=== PATIENT | female | born 1940 | race Caucasian/White ===

== ENCOUNTER 2019-07-22 15:57 | Observation (INO) | payer OTHER ==
--- OUTSIDE RECORDS SUMMARY | 2019-07-22 15:58 | XMS REPORT ---
:1940 [facility] Address [address] [place] [address] Dr. Erickson. [address] [place] [id number] Care Team Providers Name Role Phone Unavailable Unavailable Unavailable Problems This patient has no known problems. Allergies, Adverse Reactions, Alerts This patient has no known allergies or adverse reactions. Medications This patient has no known medications.
--- NOTE | 2019-07-22 17:21 | RAD REPORT ---
EXAM DESCRIPTION: CT - CTHCSPWOC - 07/22/2019 4:46 pm CLINICAL HISTORY: Transient alteration of awareness. Patient found down on ground, hypoglycemia COMPARISON: None. TECHNIQUE: Axial 5 mm thick images of the head were obtained. Axial 2 mm thick images of the cervic al spine were obtained with sagittal and coronal reconstruction images generated and reviewed. All CT scans are performed using dose optimization technique as appropriate and may include automated exposure control or mA/KV adjustment according to patient size. FINDINGS: No intracranial hemorrhage, mass, edema or acute intracranial finding. No suspicion for ac chickaloon infarction. No extra-axial fluid collections. Mastoid air cells are clear. Air-fluid level is pre sent in the left maxillary sinus. No gross sinus wall fracture seen. No globe or orbit abnormality se en. Cervical body height and alignment are normal. No significant disc space narrowing. Posterior decompr ession changes are present C4-C6. No fracture or acute bony abnormality. Prominent endplate degenerat leticia spurring changes are present. Disc bulge and endplate spurring changes are present C3-4 causing borderline spinal stenosis. Signifi cant bony foraminal encroachment at C4-5. Central canal detail is inherently limited. No paraspinal mass or hematoma. IMPRESSION: No hemorrhage, edema or acute intracranial finding. Prominent degenerative and postsurgical changes in the cervical spine with no acute finding identifia ble. Central canal detail is inherently limited.
[2019-07-22 17:58] LABS: Protime INR 1.02
[2019-07-22 17:59] LABS: Absolute Lymphocytes (CBC) 1.4 K/uL (0.7-4.9); Basophils % 0.4 % (0-1.3); Hematocrit 42.2 % (36.0-45.0); Lymphocytes % 17.7 % (15.3-44.8); MPV 9.1 fL (7.6-11.3); RBC Red Blood Cell Count 5.04 M/uL (3.86-4.86)
[2019-07-22 18:09] LABS: ALT/SGPT 29 U/L (12-78); AST/SGOT 26 U/L (15-37); Albumin 2.9 g/dL (3.4-5.0); Alkaline Phosphatase 90 U/L (45-117); BUN Blood Urea Nitrogen 15 mg/dL (7-18); Bicarbonate 26 mmol/L (21-32); Bilirubin Direct 0.2 mg/dL (0-0.2); Bilirubin Total 0.5 mg/dL (0.2-1.0); Creatine Phosphokinase 106 U/L (26-192); Glucose Level 141 mg/dL (74-106); Lipase 163 U/L (73-393); Protein, Total 8.8 g/dL (6.4-8.2); Sodium Level 135 mmol/L (136-145); Troponin (Emerg Dept Use Only) < 0.02 ng/mL (0.0-0.045)
--- NOTE | 2019-07-22 19:04 | RAD REPORT ---
EXAM DESCRIPTION: RAD - Chest Single View - 07/22/2019 5:00 pm CLINICAL HISTORY: Altered mental status, found down, hypoglycemia COMPARISON: May 2017 TECHNIQUE: AP portable chest image was obtained 1657 hours . FINDINGS: Low lung volumes are noted. This accentuates interstitial pattern and could mask early int erstitial edema or infiltrate. Heart and vasculature are normal. No measurable pleural effusion and n o pneumothorax. No acute bony abnormality seen. No acute aortic findings suspected. IMPRESSION: No focal lung parenchymal process. Low lung volumes accentuate interstitial pattern potentially masking interstitial edema and infiltrat e.
--- NOTE | 2019-07-22 19:08 | ER ---
Nurse's Notes [facility] Name: Melanie Luna Age: 78 yrs Sex: Female : 1940 Arrival Date: 07/22/2019 Time: 16:01 Bed 4 Private MD: Diagnosis: Weakness;Hypoglycemia, unspecified Presentation: 07/22 16:02 Presenting complaint: EMS states: FOUND DOWN, HYPOGLYCEMIC BGL 53 ON SCENE. Transition bp of care: patient was not received from another setting of care. Onset of symptoms is unknown. Risk Assessment: Do you want to hurt yourself or someone else? Patient reports no desire to harm self or others. Initial Sepsis Screen: Does the patient meet any 2 criteria? Altered Mental Status. No. Patient's initial sepsis screen is negative. Does the patient have a suspected source of infection? No. Patient's initial sepsis screen is negative. Care prior to arrival: Medication(s) given: D50, 1/2 amp, IV initiated. 18 GA, in the left hand, Glucose check: 53. 16:02 Method Of Arrival: EMS: [employer] [facility] bp 16:02 Acuity: MAGDY 2 bp Triage Assessment: 16:04 General: Appears in no apparent distress. comfortable, obese, Behavior is cooperative, bp appropriate for age, anxious. Pain: Complains of pain in GENERALIZED. EENT: No deficits noted. Neuro: Level of Consciousness is awake, obeys commands, confused. Cardiovascular: No deficits noted. Respiratory: No deficits noted. GI: No signs and/or symptoms were reported involving the gastrointestinal system. : No signs and/or symptoms were reported regarding the genitourinary system. Derm: No deficits noted. Musculoskeletal: No deficits noted. Historical: - Allergies: 16:04 No Known Allergies; bp - Home Meds: 16:04 Humulin 70/30 Sub-Q [Active]; Propranolol Oral [Active]; atorvastatin oral oral bp [Active]; levothyroxine oral [Active]; - PMHx: 16:04 Diabetes - IDDM; Hypertension; Hypothyroidism; bp - Immunization history:: Adult Immunizations up to date. - Social history:: Smoking status: Patient/guardian denies using tobacco. - Ebola Screening: : No symptoms or risks identified at this time. Screenin:08 Abuse screen: Denies threats or abuse. Denies injuries from another. Nutritional bp screening: No deficits noted. Tuberculosis screening: No symptoms or risk factors identified. Fall Risk None identified. Assessment: 16:07 Reassessment: SEE TRIAGE NOTE. bp 17:37 Reassessment: PT RETURNED FROM CT, UOP PENDING. bp 19:00 General: Appears uncomfortable, ill, Behavior is calm, cooperative. Neuro: Level of bb Consciousness is awake, alert, obeys commands, Oriented to person, place, time, situation. Cardiovascular: Heart tones S1 S2 present Capillary refill < 3 seconds. Cardiovascular: Rhythm is sinus bradycardia. Respiratory: Respiratory effort is even, unlabored, Respiratory pattern is regular. GI: No deficits noted. No signs and/or symptoms were reported involving the gastrointestinal system. Derm: Skin is dry, Skin is pale, Skin temperature is cool. Musculoskeletal: Circulation, motion, and sensation intact. 20:23 Reassessment: Patient is alert, oriented x 3, equal unlabored respirations, skin bb warm/dry/pink. Reassessment: report called to Lisa CARROLL for room 425. Respiratory: Respiratory effort is even, unlabored, Respiratory pattern is regular. GI: No signs and/or symptoms were reported involving the gastrointestinal system. Derm: Skin is dry, Skin is pink, Skin temperature is cool. Musculoskeletal: Circulation, motion, and sensation intact. Vital Signs: 16:04 BP 182 / 82; Pulse 47; Resp 15; Temp 97.5; Pulse Ox 100% ; Weight 81.65 kg; bp 17:37 BP 143 / 61; Pulse 46; Resp 19; Pulse Ox 99% ; bp 18:12 BP 152 / 90; Pulse 50; Resp 15; Pulse Ox 99% ; bp 19:00 BP 163 / 93; Pulse 59; Resp 16 S; Pulse Ox 98% on R/A; bb 19:36 Temp 96.0(TE); mt ED Course: 16:01 Patient arrived in ED. bp 16:03 Triage completed. bp 16:05 Arnulfo Wu MD is Attending Physician. kdr 16:07 Arm band placed on. bp 16:07 No provider procedures requiring assistance completed. Inserted saline lock: in left bp hand, using aseptic technique. 16:08 Patient has correct armband on for positive identification. Bed in low position. Call bp light in reach. Side rails up X2. 16:09 Tonny Madrigal, RN is Primary Nurse. bp 16:33 EKG done, by nuclear reactor technician. reviewed by Arnulfo Wu MD. sm3 16:47 CT Head C Spine In Process Unspecified. EDMS 16:58 Chest Single View XRAY In Process Unspecified. EDMS 17:15 Inserted saline lock: 22 gauge in left antecubital area, using aseptic technique. Blood bp collected. 19:00 Awaiting bed assignment. bb 19:00 Diet: Patient given a regular meal tray. bb 19:00 IV is intact. bb 19:07 Ortiz Allison MD is Hospitalizing Provider. kdr 19:46 Patient admitted, IV remains in place. bb Administered Medications: 16:33 Not Given (Physician Discretion): NS 0.9% (30 ml/kg) 30 ml/kg IV at bolus once; Sepsis bp Protocol Point of Care Testing: Blood Glucose: 18:12 Blood Glucose: 129 mg/dL; bp Ranges: Outcome: 19:07 Decision to Hospitalize by Provider. kdr 19:46 Instructed on the need for admit. bb 20:26 Admitted to Tele accompanied by tech, family with patient, via wheelchair, room 425, bb with chart, Report called to Lisa CARROLL 20:26 Condition: stable 20:58 Patient left the ED. bb Signatures: Dispatcher [employer] EDArnulfo Marr MD MD [facility] Mayra Christian, RN RN Haven Velez ak Tonny Madrigal, RN RN Kristina Aviles 3
--- NOTE | 2019-07-22 19:08 | EDPHYS ---
Physician Documentation [facility] Name: Melanie Luna Age: 78 yrs Sex: Female : 1940 Arrival Date: 07/22/2019 Time: 16:01 Bed 4 Private MD: ED Physician Arnulfo Wu HPI: 07/22 16:25 This 78 yrs old Female presents to ER via EMS with complaints of Low Blood kdr Sugar. 16:25 The patient or guardian reports hypoglycemia, that was potentially precipitated by no kdr particular event, with the patient's symptoms witnessed by no one. Onset: The symptoms/episode began/occurred this morning. Associated signs and symptoms: Pertinent positives:. Current symptoms: In the emergency department the patient's symptoms have improved, markedly, is more alert. Historical: - Allergies: 16:04 No Known Allergies; bp - Home Meds: 16:04 Humulin 70/30 Sub-Q [Active]; Propranolol Oral [Active]; atorvastatin oral oral bp [Active]; levothyroxine oral [Active]; - PMHx: 16:04 Diabetes - IDDM; Hypertension; Hypothyroidism; bp - Immunization history:: Adult Immunizations up to date. - Social history:: Smoking status: Patient/guardian denies using tobacco. - Ebola Screening: : No symptoms or risks identified at this time. ROS: 16:53 Constitutional: Negative for fever, chills, and weight loss, Eyes: Negative for injury, kdr pain, redness, and discharge, ENT: Negative for injury, pain, and discharge, Neck: Negative for injury, pain, and swelling, Cardiovascular: Negative for chest pain, palpitations, and edema, Respiratory: Negative for shortness of breath, cough, wheezing, and pleuritic chest pain, Abdomen/GI: Negative for abdominal pain, nausea, vomiting, diarrhea, and constipation, Back: Negative for injury and pain, : Negative for injury, bleeding, discharge, and swelling, MS/Extremity: Negative for injury and deformity, Skin: Negative for injury, rash, and discoloration, Psych: Negative for depression, anxiety, suicide ideation, homicidal ideation, and hallucinations, Allergy/Immunology: Negative for hives, rash, and allergies, Endocrine: Negative for neck swelling, polydipsia, polyuria, polyphagia, and marked weight changes, Hematologic/Lymphatic: Negative for swollen nodes, abnormal bleeding, and unusual bruising. 16:53 Neuro: Positive for altered mental status, loss of consciousness, weakness, Negative for gait disturbance, headache, hearing loss. Exam: 16:53 Constitutional: This is a well developed, well nourished patient who is awake, alert, kdr and in no acute distress. Head/Face: Normocephalic, atraumatic. Eyes: Pupils equal round and reactive to light, extra-ocular motions intact. Lids and lashes normal. Conjunctiva and sclera are non-icteric and not injected. Cornea within normal limits. Periorbital areas with no swelling, redness, or edema. Neck: Trachea midline, no thyromegaly or masses palpated, and no cervical lymphadenopathy. Supple, full range of motion without nuchal rigidity, or vertebral point tenderness. No Meningismus. Chest/axilla: Normal chest wall appearance and motion. Nontender with no deformity. No lesions are appreciated. Cardiovascular: Regular rate and rhythm with a normal S1 and S2. No gallops, murmurs, or rubs. Normal PMI, no JVD. No pulse deficits. Respiratory: Lungs have equal breath sounds bilaterally, clear to auscultation and percussion. No rales, rhonchi or wheezes noted. No increased work of breathing, no retractions or nasal flaring. Abdomen/GI: Soft, non-tender, with normal bowel sounds. No distension or tympany. No guarding or rebound. No evidence of tenderness throughout. Back: No spinal tenderness. No costovertebral tenderness. Full range of motion. Skin: Warm, dry with normal turgor. Normal color with no rashes, no lesions, and no evidence of cellulitis. MS/ Extremity: Pulses equal, no cyanosis. Neurovascular intact. Full, normal range of motion. Neuro: Awake and alert, GCS 15, oriented to person, place, time, and situation. Cranial nerves II-XII grossly intact. Motor strength 5/5 in all extremities. Sensory grossly intact. Cerebellar exam normal. Normal gait. Psych: Awake, alert, with orientation to person, place and time. Behavior, mood, and affect are within normal limits. Vital Signs: 16:04 BP 182 / 82; Pulse 47; Resp 15; Temp 97.5; Pulse Ox 100% ; Weight 81.65 kg; bp 17:37 BP 143 / 61; Pulse 46; Resp 19; Pulse Ox 99% ; bp 18:12 BP 152 / 90; Pulse 50; Resp 15; Pulse Ox 99% ; bp 19:00 BP 163 / 93; Pulse 59; Resp 16 S; Pulse Ox 98% on R/A; bb 19:36 Temp 96.0(TE); mt MDM: 16:53 Data reviewed: vital signs, nurses notes, lab test result(s), radiologic studies. kdr Counseling: I had a detailed discussion with the patient and/or guardian regarding: the historical points, exam findings, and any diagnostic results supporting the discharge/admit diagnosis, lab results, radiology results. 19:07 Patient medically screened. kdr 19:11 Physician consultation: Esa Green MD was called at 19:11, was contacted at 19:11, [facility] regarding admission, to the telemetry unit. Admission orders: after a detailed discussion of the patient's condition and case, the admit orders are written by me. 07/22 16:08 Order name: Basic Metabolic Panel; Complete Time: 18:11 kdr 07/22 16:08 Order name: Blood Culture Adult (2) kdr 07/22 16:08 Order name: CBC with Diff; Complete Time: 18:11 kdr 07/22 16:08 Order name: Ckmb; Complete Time: 18:11 kdr 07/22 16:08 Order name: CPK; Complete Time: 18:11 kdr 07/22 16:08 Order name: Lactate; Complete Time: 18:11 kdr 07/22 16:08 Order name: LFT's; Complete Time: 18:11 kdr 07/22 16:08 Order name: Lipase; Complete Time: 18:11 kdr 07/22 16:08 Order name: Procalcitonin; Complete Time: 19:04 kdr 07/22 16:08 Order name: Protime (+inr); Complete Time: 18:11 kdr 07/22 16:08 Order name: Ptt, Activated; Complete Time: 18:11 kdr 07/22 16:08 Order name: Troponin (emerg Dept Use Only); Complete Time: 18:11 kdr 07/22 16:08 Order name: Urine Microscopic Only kdr 07/22 16:12 Order name: Glucose, Ancillary Testing; Complete Time: 16:17 EDMS 07/22 16:08 Order name: Chest Single View XRAY kdr 07/22 16:08 Order name: Accucheck; Complete Time: 16:[address] [facility] 07/22 16:08 Order name: Cardiac monitoring; Complete Time: 16:[address] [facility] 07/22 16:17 Order name: CT Head C Spine; Complete Time: 17:[address] [facility] 07/22 17:35 Order name: EKG Electrocardiogram; Complete Time: 17:36 [facility] 07/22 18:06 Order name: Glucose, Ancillary Testing; Complete Time: 18:11 [facility] 07/22 19:46 Order name: Glucose, Ancillary Testing [facility] 07/22 19:48 Order name: Urine Dipstick--Ancillary (enter results) ar5 07/22 20:01 Order name: Consistent Carb (ADA) [address] [facility] 07/22 20:01 Order name: Heart Healthy [facility] 07/22 20:01 Order name: Basic Metabolic Panel [facility] 07/22 20:01 Order name: Basic Metabolic Panel [facility] 07/22 20:01 Order name: CBC with Automated Diff [facility] 07/22 20:01 Order name: CBC with Automated Diff [facility] 07/22 20:27 Order name: Urine Culture [facility] 07/22 16:08 Order name: EKG - Nurse/Tech; Complete Time: 16:[address] [facility] 07/22 16:08 Order name: IV Saline Lock - Large Bore; Complete Time: 16:[address] [facility] 07/22 16:08 Order name: Labs collected and sent; Complete Time: 17:[address] [facility] 07/22 16:08 Order name: O2 Per Protocol; Complete Time: 16:[address] [facility] 07/22 16:08 Order name: O2 Sat Monitoring; Complete Time: 16:[address] [facility] 07/22 16:08 Order name: Urine Dipstick-Ancillary (obtain specimen); Complete Time: 19:46 kdr Administered Medications: 16:33 Not Given (Physician Discretion): NS 0.9% (30 ml/kg) 30 ml/kg IV at bolus once; Sepsis bp Protocol Point of Care Testing: Blood Glucose: 18:12 Blood Glucose: 129 mg/dL; bp Ranges: Critical Glucose Levels:Adult <50 mg/dl or >400 mg/dl <40 mg/dl or >180 mg/dl Disposition: 07/22/19 19:07 Hospitalization ordered by Ortiz Allison for Observation. Preliminary diagnosis are Weakness, Hypoglycemia, unspecified. - Bed requested for Telemetry/MedSurg (observation). - Status is Observation. bb - Condition is Fair. - Problem is new. - Symptoms have improved. UTI on Admission? No Signatures: Dispatcher [employer] EDMS Bela Gutiérrez RN RN Arnulfo Wu MD MD kdr Ballard, Brenda, RN RN bb Tonny Madrigal RN RN bp Corrections: (The following items were deleted from the chart) 20:12 19:07 Hospitalization Ordered by Ortiz Allison MD for Observation. Preliminary diagnosis mw is Weakness; Hypoglycemia, unspecified. Bed requested for Telemetry/MedSurg (observation). Status is Observation. Condition is Fair. Problem is new. Symptoms have improved. UTI on Admission? No. kdr 20:58 20:12 07/22/2019 19:07 Hospitalization Ordered by Ortiz Allison MD for Observation. bb Preliminary diagnosis is Weakness; Hypoglycemia, unspecified. Bed requested for Telemetry/MedSurg (observation). Status is Observation. Condition is Fair. Problem is new. Symptoms have improved. UTI on Admission? No. mw
[2019-07-22 19:55] LABS: Urine Blood 1+ (NEG); Urine Glucose 2+ (NEG); Urine Protein 1+ (NEG); Urine pH 5.5 (5.0-7.0)
[2019-07-22] MEDS ORDERED: GLUCAGON 1 MG/VIAL IM PRN (19:59)
[2019-07-22] MEDS ORDERED: ONDANSETRON 4 MG/2 ML VIAL IV PRN (19:59)
[2019-07-22] MEDS ORDERED: ACETAMINOPHEN 500 MG TAB PO PRN (19:59)
[2019-07-22] MEDS ORDERED: D50W 25 GM/50 ML SYRINGE/VIAL IV PRN (19:59)
[2019-07-22 20:25] LABS: Urine Bacteria LOADED /HPF (<20)
[2019-07-22 20:26] LABS: Urine Culture Reflex Order REFLEXED
[2019-07-22 21:01] VITALS: BMI 30.4
[2019-07-22 21:48] VITALS: O2SAT 94
[2019-07-22] MEDS: INSULIN -REGULAR HUMAN 50 UNIT/0.5 ML ML SQ SCH (21:52)
[2019-07-23 05:35] LABS: Absolute Lymphocytes (CBC) 1.8 K/uL (0.7-4.9); Basophils % 0.4 % (0-1.3); Hematocrit 39.3 % (36.0-45.0); Lymphocytes % 26.7 % (15.3-44.8); MPV 8.8 fL (7.6-11.3)
[2019-07-23 05:47] LABS: Potassium 4.4 mmol/L (3.5-5.1)
[2019-07-23] MEDS: INSULIN -REGULAR HUMAN 50 UNIT/0.5 ML ML SQ SCH ×2 (07:30→11:25)
--- NOTE | 2019-07-23 10:10 | P.SSS ---
Patient History Date of Service: 07/23/19 Reason for admission: LOW GLUCOSE History of Present Illness: ZION IS A DIABETIC WHO DOES NOT FOLLOW RECOMMENDATIONS. SHE HAS NOT CHAGNED HER DIET. SHE DAILY EATS BANANA AND TAKES INSULIN. SHE HAD HYPOGLYCEMIA SHE DID NOT EAT WELL AFTER TAKING INSULIN. HER DIET FLUCTUTATES AND SO EXTENAL INSULIN DOES NOT GET CARB BACK UP TO STOP HYPOGLYCEMIA. UNDERSTANDS BUT NOT ABLE TO CONTROL HER HABITS. SHE NOW IS BACK TO BASELINE. Allergies No Known Allergies Allergy (Unverified 07/22/19 19:59) Home Medications: Atorvastatin Calcium 20 mg PO DAILY 07/23/19 Hum Insulin NPH/Reg Insulin Hm [Humulin 70-30 Vial] 35 units SQ DAILY AT SUPPER 07/23/19 Hum Insulin NPH/Reg Insulin Hm [Humulin 70-30 Vial] 40 units SQ DAILY WITH BREAKFAST 07/23/19 Levothyroxine [Synthroid*] 75 mcg PO DAILY 07/23/19 Propranolol HCl 60 mg PO DAILY 07/23/19 - Past Medical/Surgical History Has patient received pneumonia vaccine in the past: Yes Diabetic: Yes -: HTN -: DM -: hypothyroidism -: hysterectomy -: neck sx - Social History Smoking Status: Former smoker Alcohol use: No CD- Drugs: No Caffeine use: Yes Place of Residence: Home Review of Systems 10-point ROS is otherwise unremarkable Physical Examination - Vital Signs Temperature: 97.7 F Blood Pressure: 134/61 Pulse: 70 Respirations: 18 Pulse Ox (%): 93 - Physical Exam General: Alert, In no apparent distress, Obese, Other (WHEELCHAIR AND WALKER BOUND. ) HEENT: Atraumatic, PERRLA, Mucous membr. moist/pink, EOMI, Sclerae nonicteric Neck: Supple, 2+ carotid pulse no bruit, No LAD, Without JVD or thyroid abnormality Respiratory: Clear to auscultation bilaterally, Normal air movement Cardiovascular: Regular rate/rhythm, Normal S1 S2 Gastrointestinal: Normal bowel sounds, No tenderness Musculoskeletal: Other (SEVERE CHARCOT JOINTS.) Integumentary: No rashes Neurological: Normal gait, Normal speech, Normal strength at 5/5 x4 extr, Normal tone, Normal affect Lymphatics: No axilla or inguinal lymphadenopathy - Studies Laboratory Data (last 24 hrs) 07/22/19 17:30: PT 12.0, INR 1.02, APTT 26.0 07/22/19 17:30: WBC 8.1, Hgb 14.2, Hct 42.2, Plt Count 192 07/22/19 17:30: Sodium 135 L, Potassium 4.0, BUN 15, Creatinine 0.89, Glucose 141 H, Total Bilirubin 0.5, AST 26, ALT 29, Alkaline Phosphatase 90, Lipase 163 - Diagnosis (Problem(s)) (1) Diabetes Current Visit: Yes Status: Acute (2) Hypoglycemia due to type 2 diabetes mellitus Current Visit: Yes Status: Acute Plan: ABOVE IN HPI SHE KNOWS WHAT TO DO TO AVOID LOW GLUCOSE. I WENT OVER IN DETAIL AGAIN. SHE IS IN DENIAL FOR LONG TIME. DOES NOT FOLLOW DIET BALANACE. - Disposition Disposition: ROUTINE DISCHARGE Condition: FAIR Patient Discharge Instructions: DO NOT TAKE INSULIN IF YOU ARE NOT GOING TO EAT RIGHT AFTER. TAKE INSULIN IN AM AND PM RIGHT BEFORE A GOOD MEAL. Diet: ADA
[2019-07-23 12:24] VITALS: BP 127/63; TEMP 98.2
--- NOTE | 2019-07-23 14:22 | EKG ---
Test Date: 2019-07-22 Test Time: 16:24:18 Uptwist Spinner: LILIYA MEASUREMENT RESULTS: Intervals: Rate: 48 PA: 112 QRSD: 86 QT: 484 QTc: 432 [place]: P: PA: 112 QRS: -35 T: 58 INTERPRETIVE STATEMENTS: Sinus bradycardia Left axis deviation Abnormal ECG Compared to ECG 05/27/1993 12:05:00 Left-axis deviation now present Sinus rhythm no longer present Short PA interval no longer present T-wave abnormality no longer present Electronically Signed On 07-23-19 14:19:23 TAKER OFF BRAKER MACHINE by Mychal Pierce
== END 2019-07-23 13:02 | disposition home or self-care (01) ==
LOC: ER 15:57 → 4TH 20:29
PROVIDERS: ADMIT Internal Medicine; ATTEND Internal Medicine
DX: E11.649 Type 2 diabetes mellitus with hypoglycemia without coma (principal); I10 Essential (primary) hypertension; E03.9 Hypothyroidism, unspecified; Z87.891 Personal history of nicotine dependence
CPT/HCPCS: 93005; 87040 ×2; 87088; 85025 ×2; 87086; 80048 ×2; 36415; 82550; 87205; 85610; 82947 ×7; 80076; 83605; 85730; 87077 ×2; 87186 ×2; 84484; 82553; 83690; 84145; 70450; 72125; 71045; 99285; G0378 ×3; 81003; 81015

== ENCOUNTER 2022-06-23 08:03 | Inpatient (IN) | payer OTHER ==
--- OUTSIDE RECORDS SUMMARY | 2022-06-23 08:06 | XMS REPORT | Continuity of Care Document ---
:1940 Author Organization [facility] t Address [address] [place] [address] Dr. White [address] [place] [address] Care Team Providers Name Role Phone ROCK REZA Attending Clinician Unavailable PIETER ASHER Attending Clinician Unavailable Payers Payer Name Policy Type Policy Number Effective Date Expiration Date S mumtaz MEDICARE PART A [id number] 2003 AND B 00:00:00 Problems This patient has no known problems. Allergies, Adverse Reactions, Alerts This patient has no known allergies or adverse reactions. Medications This patient has no known medications. Procedures This patient has no known procedures. Encounters Start End Encounter Admission Attending Care Care Encounter Source Date/Time Date/Time Type Type Clinicians Facility Department ID 2022-04-11 Outpatient [facility] [id number] [place] 15:12:30 [id number] [facility] 2022-01-29 Outpatient ROCK REZA [facility] [id number] [place] 09:21:09 [id number] [facility] 2022-01-01 Outpatient [facility] [id number] [place] 15:22:23 [id number] [facility] 2021-12-23 Outpatient ROCK REZA [facility] [id number] [place] 16:16:47 [id number] [facility] 2021-12-20 Outpatient [facility] [id number] [place] 11:20:19 [id number] [facility] 2021-12-19 Outpatient [facility] [id number] [place] 16:00:19 [id number] [facility] 2021-12-17 Outpatient [facility] [id number] [place] 01:04:47 [id number] [facility] 2021-12-16 Outpatient LB [facility] [id number] [place] 16:58:12 PIETER [id number] [facility] 2021-12-13 Outpatient [facility] [id number] [place] 08:14:59 [id number] [facility] 2021-12-12 Outpatient [facility] [id number] [place] 15:52:29 [id number] [facility] 2021-11-27 Outpatient [facility] [id number] [place] 09:42:35 [id number] [facility] 2021-11-20 Outpatient [facility] [id number] [place] 09:44:31 [id number] Health Results This patient has no known results.
--- NOTE | 2022-06-23 08:45 | RAD REPORT ---
EXAM DESCRIPTION: RAD - Chest Single View - 06/23/2022 8:36 am CLINICAL HISTORY: MALAISE Chest pain. COMPARISON: Chest Single View dated 07/22/2019; Chest Pa And Lat (2 Views) dated 06/16/2017 FINDINGS: Portable technique limits examination quality. Hazy appearance to the left lung may indicate mild asymmetric interstitial pulmonary edema. The heart is normal in size. No displaced fractures.Small hiatal hernia.
[2022-06-23 08:52] LABS: Urine Blood 1+ (Negative); Urine Glucose 3+ (Negative); Urine Protein 2+ (Negative); Urine Specific Gravity 1.015 (1.005-1.030); Urine pH 5.5 (5.0-7.0)
--- NOTE | 2022-06-23 08:55 | RAD REPORT ---
EXAM DESCRIPTION: CT - Head Brain Wo Cont - 06/23/2022 8:33 am CLINICAL HISTORY: weakness Headache, drowsiness, fall, head injury COMPARISON: No comparisons TECHNIQUE: All CT scans are performed using dose optimization technique as appropriate and may inclu de automated exposure control or mA/KV adjustment according to patient size. FINDINGS: No intracranial hemorrhage, hydrocephalus or extra-axial fluid collection.No areas of brai n edema or evidence of midline shift. The paranasal sinuses and mastoids are clear. The calvarium is intact. IMPRESSION: No acute intracranial abnormality.
[2022-06-23 09:01] LABS: Urine Bacteria 20-50 /HPF (<20); Urine Mucus Slight /HPF (None Seen); Urine WBC Clump Occasional /HPF (None Seen)
[2022-06-23] MEDS ORDERED: NA CHLORIDE 0.9% 50 ML IV ONE (09:08)
[2022-06-23] MEDS ORDERED: CEFTRIAXONE 1000 MG/VIAL ONE (09:08)
[2022-06-23 09:40] LABS: Absolute Lymphocytes (CBC) 1.1 K/uL (0.7-4.9); Hematocrit 40.6 % (36.0-45.0); Lymphocytes % 11.3 % (15.3-44.8); MCV 85.8 fL (80-100); MPV 9.1 fL (7.6-11.3); RBC Red Blood Cell Count 4.74 M/uL (3.86-4.86)
[2022-06-23 09:42] LABS: Protime INR 1.03
--- NOTE | 2022-06-23 09:54 | RAD REPORT ---
EXAM DESCRIPTION: RAD - Elbow Left 3 View - 06/23/2022 9:30 am CLINICAL HISTORY: PAIN COMPARISON: No comparisons FINDINGS: No fracture or dislocation seen. No radiopaque foreign body.
[2022-06-23 10:01] LABS: Albumin 2.7 g/dL (3.4-5.0); Bilirubin Total 0.5 mg/dL (0.2-1.0); Potassium 3.9 mmol/L (3.5-5.1); Protein, Total 7.9 g/dL (6.4-8.2); Troponin High Sensitivity 15.5 pg/mL (<58.9)
[2022-06-23 10:04] LABS: Thyroid Stimulating Hormone 5.9 uIU/mL (0.360-3.740)
[2022-06-23] MEDS ORDERED: HYDRALAZINE HCL 20 MG/ML VIAL ONE (10:34)
[2022-06-23] MEDS ORDERED: INSULIN -REGULAR HUMAN 50 UNIT/0.5 ML ML ONE (10:35)
--- NOTE | 2022-06-23 10:41 | ER ---
Nurse's Notes [facility] Name: Melanie Luna Age: 81 yrs Sex: Female : 1940 Arrival Date: 06/23/2022 Time: 08:07 Bed 19 Private MD: Diagnosis: UTI/ Urinary tract infection, site not specified;Hyperglycemia, unspecified;Hypertensive urgency Presentation: 06/23 08:09 Chief complaint: Patient states: Weakness and falls for a few days. L elbow abrasion ll1 noted with tenderness. EMS states: Sugar 500's last night. Fingerstick 365 en route. 22 G R Hand NS 500 ml bolus given. Coronavirus screen: Vaccine status: Patient reports receiving the 2nd dose of the covid vaccine. Client denies travel out of the [place] in the last 14 days. At this time, the client does not indicate any symptoms associated with coronavirus-19. Ebola Screen: Patient denies travel to an Ebola-affected area in the 21 days before illness onset. Initial Sepsis Screen: Does the patient meet any 2 criteria? No. Patient's initial sepsis screen is negative. Does the patient have a suspected source of infection? No. Patient's initial sepsis screen is negative. Risk Assessment: Do you want to hurt yourself or someone else? Patient reports no desire to harm self or others. Onset of symptoms is unknown. 08:09 Method Of Arrival: EMS ll1 08:09 Acuity: MAGDY 3 ll1 08:53 Care prior to arrival: IV fluids. Mechanism of Injury: Fall. Trauma event details: ll1 Injury occurred in the [facility]. Triage Assessment: 08:12 General: Appears in no apparent distress. Behavior is cooperative, appropriate for age. ll1 Pain: Complains of pain in left arm Pain currently is 2 out of 10 on a pain scale. Quality of pain is described as aching. Neuro: Reports dizziness, weakness. Derm: abrasion L elbow. Musculoskeletal: Reports pain in left arm. Trauma Activation: Not Applicable Physician: ED Physician; Name: ; Notified At: ; Arrived At: Physician: General Surgeon; Name: ; Notified At: ; Arrived At: Physician: Radiology; Name: ; Notified At: ; Arrived At: Physician: Respiratory; Name: ; Notified At: ; Arrived At: Physician: Lab; Name: ; Notified At: ; Arrived At: Historical: - Allergies: 08:08 No Known Allergies; ll1 - PMHx: 08:08 Diabetes - IDDM; Hypertension; Hypothyroidism; CVA; Parkinson's disease; ll1 - PSHx: 08:08 Unable to Obtain; ll1 - Immunization history:: Client reports receiving the 2nd dose of the Covid vaccine. - Social history:: Smoking status: Patient/guardian denies using tobacco, the patient reports quitting approximately 20 years ago. - Immunization history: Last tetanus immunization: - up to date. Screenin:13 Abuse screen: Denies threats or abuse. Nutritional screening: No deficits noted. ll1 Tuberculosis screening: No symptoms or risk factors identified. Fall Risk Fall in past 12 months (25 points). Secondary diagnosis (15 points) CVA, IV access (20 points). Mental Status- Overestimates/Forgets Limitations (15 pts.). Total Liao Fall Scale indicates High Risk Score (45 or more points). Fall prevention measures have been instituted. Side Rails Up X 2 Placed Close to Nursing Station Frequent Obs/Assessments Occuring Family Present and informed to notify staff if the need to leave the bedside As available patient and family educated on Fall Prevention Program and Strategies. Primary Survey: 08:14 NO uncontrolled hemorrhage observed. A: The client is awake and alert. The airway is ll1 patent. Breathing/Chest: Spontaneous respiratory effort, equal unlabored respirations, breath sounds clear bilaterally, regular pattern, symmetrical chest rise and fall. Circulation: No external hemorrhage present. Regular and strong central pulse, skin warm/dry/normal color. Disability Client is alert. Exposure/Environment: There is no evidence of uncontrolled external bleeding. A warming method has been applied: A warm blanket has been provided to the patient. 10:42 Reassessment Alertness and Airway: Awake and alert. The airway is patent. Breathing: ll1 Spontaneous respiratory effort, equal unlabored respirations, breath sounds clear bilaterally, regular pattern with symmetrical chest rise and fall. Assessment: 08:53 Reassessment: No changes from previously documented assessment. Patient and/or family ll1 updated on plan of care and expected duration. Pain level reassessed. 09:20 Reassessment: No changes from previously documented assessment. Patient and/or family ll1 updated on plan of care and expected duration. Pain level reassessed. 10:09 Reassessment: No changes from previously documented assessment. Patient and/or family ll1 updated on plan of care and expected duration. Pain level reassessed. 10:41 Reassessment: No changes from previously documented assessment. Patient and/or family ll1 updated on plan of care and expected duration. Pain level reassessed. to be admitted. 11:20 Reassessment: No changes from previously documented assessment. Patient and/or family ll1 updated on plan of care and expected duration. Pain level reassessed. 12:27 Reassessment: No changes from previously documented assessment. Patient and/or family ll1 updated on plan of care and expected duration. Pain level reassessed. given lunch alex. 12:45 Reassessment: No changes from previously documented assessment. Dr. Allison at bedside. ll1 13:53 Reassessment: No changes from previously documented assessment. Patient and/or family ll1 updated on plan of care and expected duration. Pain level reassessed. 14:51 Reassessment: No changes from previously documented assessment. Patient and/or family ll1 updated on plan of care and expected duration. Pain level reassessed. Vital Signs: 08:09 BP 162 / 79; Pulse 83; Resp 16; Temp 97.4; Pulse Ox 96% on R/A; Weight 100.7 kg; Height ll1 5 ft. 6 in. (167.64 cm); Pain 2/10; 09:25 BP 183 / 99; Pulse 75; Resp 16; Pulse Ox 96% on R/A; tw2 10:09 BP 195 / 98; Pulse 78; Pulse Ox 96% on R/A; ll1 10:42 BP 147 / 109; Pulse 81; Resp 16; Pulse Ox 100% on R/A; ll1 11:04 BP 150 / 68; Pulse 81; Resp 16; Pulse Ox 100% on R/A; ll1 12:27 BP 149 / 69; Pulse 90; Pulse Ox 96% ; ll1 14:35 BP 140 / 55; Pulse 91; Resp 17; Pulse Ox 100% ; ll1 08:09 Body Mass Index 35.83 (100.70 kg, 167.64 cm) ll1 [place] Coma Score: 08:13 Eye Response: spontaneous(4). Verbal Response: confused(4). Motor Response: obeys ll1 commands(6). Total: 14. Trauma Score (Adult): 08:13 Eye Response: spontaneous(1); Verbal Response: oriented(1); Motor Response: obeys ll1 commands(2); Systolic BP: > 89 mm Hg(4); Respiratory Rate: 10 to 29 per min(4); Natasha Score: 15; Trauma Score: 12 NIH Stroke Scale Scores: 08:16 NIHSS Score: 8 [facility] ED Course: 08:07 Patient arrived in ED. ll1 08:08 Arm band placed on Patient placed in an exam room, on a stretcher. 1 08:10 Jo[facility] Gonzalez FNP [facility] 7 08:10 Wilfrido Johnson MD is Attending Physician. 7 08:10 Thermoregulation: warm blanket given to patient. ll1 08:12 Triage completed. ll1 08:13 Maintain EMS IV. Dressing intact. Good blood return noted. Site clean \T\ dry. Gauge \T\ ll 1 site: 22 R hand. 08:14 Danny Beatty, CARLY is Primary Nurse. ll1 08:35 CT Head Brain wo Cont In Process Unspecified. EDMS 08:38 Chest Single View XRAY In Process Unspecified. EDMS 08:52 Dunlap cath inserted, using sterile technique, 16 Fr., by mn, balloon inflated, to ll1 gravity drainage, urine specimen collected. 08:53 Patient has correct armband on for positive identification. Bed in low position. Call ll1 light in reach. Side rails up X2. Client placed on continuous cardiac and pulse oximetry monitoring. NIBP monitoring applied. 08:53 Patient maintains SpO2 saturation greater than 95% on room air. ll1 09:17 Inserted saline lock: 22 gauge in left antecubital area, using aseptic technique. Blood tw2 collected. 09:31 Elbow Left 3 View XRAY In Process Unspecified. EDMS 10:39 Ortiz Allison MD is Hospitalizing Provider. [facility] 11:27 SARS RAPID Sent. ll1 14:50 No provider procedures requiring assistance completed. Patient admitted, IV remains in ll1 place. Administered Medications: 10:42 Drug: Insulin Regular Human 5 units {Co-Signature: tw2 (Asha Franks RN).} Route: IVP; 1 Site: right hand; 11:05 Follow up: Response: No adverse reaction 1 10:43 Drug: hydrALAZINE 10 mg Route: IVP; Site: right hand; ll1 11:05 Follow up: Response: No adverse reaction 1 11:51 Drug: Rocephin (cefTRIAXone) 1 grams Route: IV; Rate: 1 calculated rate; Site: right ll1 hand; 13:54 Follow up: Response: No adverse reaction; IV Status: Completed infusion; IV Intake: [id number] Medication: 08:14 VIS not applicable for this client. ll1 Intake: 13:54 IV: 50ml; Total: 50ml. ll1 14:50 PO: 200ml; Total: 250ml. ll1 Output: 14:50 Urine: 300ml; Total: 300ml. 1 Outcome: 10:40 Decision to Hospitalize by Provider. [facility] hospital 14:51 Patient's length of stay in the Emergency Department was greater than 2 hours. 1 14:51 Admitted to Med/surg accompanied by mikala, via stretcher, room Room 404, with oxygen, ll1 with chart. 14:51 Condition: stable 14:51 Instructed on the need for admit. 15:07 Admitted to Med/surg Report called to CARLY Cm On 1 15:20 Patient left the ED. 1 NIH Stroke Scale - NIH Stroke Score Date: 06/23/2022 Time: 08:16 Total Score = 8 1a. Level of Consciousness (LOC) - 0(Alert) 1b. Level of Consciousness (LOC) (Month \T\ Age) - 2(Neither) 1c. LOC Commands (Open \T\ Closes Eyes/Histologic Technician) - 0(Both) 2. Best Gaze (Lateral Gaze Paresis) - 0(Normal) 3. Visual Field Loss - 0(No visual loss) 4. Facial Palsy - 0(Normal) 5a. Left Arm: Motor (10-second hold) - 1(Drift) 5b. Right Arm: Motor (10-second hold) - 1(Drift) 6a. Left Leg: Motor (5-second hold - always test supine) - 1(Drift) 6b. Right Leg: Motor (5-second hold - always test supine) - 1(Drift) 7. Limb Ataxia (finger/nose \T\ heel/cabral - test with eyes open) - 2(Present in two limbs) 8. Sensory Loss (pinprick arms/legs/face) - 0(Normal) 9. Best Language: Aphasia (description/naming/reading) - 0(No aphasia) 10. Dysarthria (speech clarity - read or repeat words) - 0(Normal) 11. Extinction and Inattention (visual/tactile/auditory/spatial/personal) - 0(No abnormality) Initials: community hospital Signatures: Dispatcher [employer] Asha Flores RN RN tw2 Danny Beatty RN RN ll1 Joanie Gonzalez FNP PRODUCTION PLANNING SUPERVISOR 7 Asha Franks RN tw2
--- NOTE | 2022-06-23 10:41 | EDPHYS ---
Physician Documentation [facility] Name: Melanie Luna Age: 81 yrs Sex: Female : 1940 Arrival Date: 06/23/2022 Time: 08:07 Bed 19 Private MD: ED Physician Wilfrido Johnson HPI: 06/23 08:13 This 81 yrs old Female presents to ER via EMS with complaints of General Weakness, Fall jh7 Injury. 08:13 Onset: The symptoms/episode began/occurred at an unknown time. and became worse last jh7 night. Associated signs and symptoms: Pertinent positives: Polyuria, Pertinent negatives: abdominal pain, chest pain, dysuria, fever, headache, shortness of breath, vomiting. 08:16 EMS called on scene by the patient's for increasing weakness. states jh7 this has been going on for a while now, but worsened last night. Reports that she has had trouble making it to the bathroom and has experienced increased urination. The patient reports that she constantly feels like she is about to fall, and had 1 assist to the floor last night and one incident with the patient caught herself on her bookshelf before falling. The patient's reports that she has been noncompliant with her medication for the past 4 months. She has a history of Parkinson's, hypertension, type 2 diabetes, and a stroke 6 months ago. Her medication include atorvastatin, levothyroxine, lisinopril, Tylenol with codeine, and propanolol. They report that her blood glucose was 365 this morning and she was hypertensive on scene at 170/90.. Historical: - Allergies: 08:08 No Known Allergies; ll1 - PMHx: 08:08 Diabetes - IDDM; Hypertension; Hypothyroidism; CVA; Parkinson's disease; ll1 - PSHx: 08:08 Unable to Obtain; ll1 - Immunization history:: Client reports receiving the 2nd dose of the Covid vaccine. - Social history:: Smoking status: Patient/guardian denies using tobacco, the patient reports quitting approximately 20 years ago. - Immunization history: Last tetanus immunization: - up to date. ROS: 08:16 Constitutional: Negative for fever, chills, and weight loss, Eyes: Negative for injury, jh7 pain, redness, and discharge, ENT: Negative for injury, pain, and discharge, Neck: Negative for injury, pain, and swelling, Cardiovascular: Negative for chest pain, palpitations, and edema, Respiratory: Negative for shortness of breath, cough, wheezing, and pleuritic chest pain, Abdomen/GI: Negative for abdominal pain, nausea, vomiting, diarrhea, and constipation, Back: Negative for injury and pain, MS/Extremity: Negative for injury and deformity, Skin: Negative for injury, rash, and discoloration. 08:16 : Positive for urinary frequency, Negative for pelvic pain, flank pain, burning with urination, vaginal discharge. 08:16 Neuro: Positive for altered mental status, gait disturbance, tremor, weakness, Negative for headache, loss of consciousness, numbness, speech changes, syncope, tingling. 08:16 All other systems are negative. Exam: 08:16 Constitutional: This is a well developed, well nourished patient who is awake, alert, jh7 and in no acute distress. Head/Face: Normocephalic, atraumatic. Eyes: Pupils equal round and reactive to light, extra-ocular motions intact. Lids and lashes normal. Conjunctiva and sclera are non-icteric and not injected. Cornea within normal limits. Periorbital areas with no swelling, redness, or edema. ENT: Nares patent. No nasal discharge, no septal abnormalities noted. Oropharynx with no redness, swelling, or masses, exudates, or evidence of obstruction, uvula midline. Mucous membranes moist. 08:16 Chest/axilla: Normal chest wall appearance and motion. Nontender with no deformity. No lesions are appreciated. Cardiovascular: Regular rate and rhythm with a normal S1 and S2. No gallops, murmurs, or rubs. Normal PMI, no JVD. No pulse deficits. Abdomen/GI: Soft, non-tender, with normal bowel sounds. No distension or tympany. No guarding or rebound. No evidence of tenderness throughout. Back: No spinal tenderness. No costovertebral tenderness. Full range of motion. MS/ Extremity: Pulses equal, no cyanosis. Neurovascular intact. Full, normal range of motion. 08:16 Respiratory: the patient does not display signs of respiratory distress, Respirations: normal, Breath sounds: decreased breath sounds, that are mild, are heard in the left lower lobe and right lower lobe. 08:16 Neuro: Orientation: Not oriented to time, situation, Mentation: slow to respond, Motor: strength is 4/5 in the right leg and left leg, Sensation: is normal. 08:16 Skin: injury, abrasion(s), small abrasion noted, of the left elbow. [facility] Vital Signs: 08:09 BP 162 / 79; Pulse 83; Resp 16; Temp 97.4; Pulse Ox 96% on R/A; Weight 100.7 kg; Height ll1 5 ft. 6 in. (167.64 cm); Pain 2/10; 09:25 BP 183 / 99; Pulse 75; Resp 16; Pulse Ox 96% on R/A; tw2 10:09 BP 195 / 98; Pulse 78; Pulse Ox 96% on R/A; ll1 10:42 BP 147 / 109; Pulse 81; Resp 16; Pulse Ox 100% on R/A; ll1 11:04 BP 150 / 68; Pulse 81; Resp 16; Pulse Ox 100% on R/A; ll1 12:27 BP 149 / 69; Pulse 90; Pulse Ox 96% ; ll1 14:35 BP 140 / 55; Pulse 91; Resp 17; Pulse Ox 100% ; ll1 08:09 Body Mass Index 35.83 (100.70 kg, 167.64 cm) 1 NIH Stroke Scale Scores: 08:16 NIHSS Score: 8 [facility] Natasha Coma Score: 08:13 Eye Response: spontaneous(4). Verbal Response: confused(4). Motor Response: obeys ll1 commands(6). Total: 14. Trauma Score (Adult): 08:13 Eye Response: spontaneous(1); Verbal Response: oriented(1); Motor Response: obeys ll1 commands(2); Systolic BP: > 89 mm Hg(4); Respiratory Rate: 10 to 29 per min(4); Natasha Score: 15; Trauma Score: 12 MDM: 08:10 Patient medically screened. [facility] 10:50 Differential diagnosis: viral Infection, bacterial infection, pneumonia UTI, [facility] Dehydration. Data reviewed: vital signs, nurses notes, lab test result(s), EKG, radiologic studies, CT scan, plain films. Data interpreted: Pulse oximetry: is 100 %. Interpretation: normal. Counseling: I had a detailed discussion with the patient and/or guardian regarding: the historical points, exam findings, and any diagnostic results supporting the discharge/admit diagnosis, the need for further work-up and treatment in the hospital. ED course: admitted the patient to her PCP Dr. Bhakta. Admission orders were placed in [facility]. He requested ACHS sliding scale, 0.45 NS \T\75mL, PT consult, continue Rocephin, and BMP/CBC daily. . 06/23 08:12 Order name: Blood Culture Adult (2) [facility] 06/23 08:12 Order name: CBC with Diff; Complete Time: 09:42 [facility] 06/23 08:12 Order name: CMP; Complete Time: 10:29 [facility] 06/23 08:12 Order name: Lactate; Complete Time: 09:54 [facility] 06/23 08:12 Order name: Protime (+inr); Complete Time: 09:54 [facility] 06/23 08:12 Order name: Ptt, Activated; Complete Time: 09:54 [facility] 06/23 08:12 Order name: Urine Microscopic Only; Complete Time: 09:03 [facility] 06/23 08:12 Order name: Troponin HS; Complete Time: 10:29 [facility] 06/23 08:12 Order name: CK; Complete Time: 10:29 [facility] 06/23 08:12 Order name: PROBNP; Complete Time: 10:29 [facility] 06/23 08:13 Order name: TSH; Complete Time: 10:29 [facility] 06/23 08:52 Order name: Urine Dipstick-Ancillary; Complete Time: 08:54 [facility] 06/23 09:05 Order name: Urine Culture [facility] 06/23 10:06 Order name: T4 Free; Complete Time: 10:29 [facility] 06/23 08:12 Order name: Chest Single View XRAY; Complete Time: 08:54 [facility] 06/23 08:12 Order name: Accucheck; Complete Time: 10:36 [facility] 06/23 08:12 Order name: Cardiac monitoring; Complete Time: 08:27 [facility] 06/23 08:12 Order name: CT Head Brain wo Cont; Complete Time: 08:58 [facility] 06/23 08:21 Order name: EKG; Complete Time: 08:21 [facility] 06/23 09:06 Order name: Elbow Left 3 View XRAY; Complete Time: 10:03 [facility] 06/23 11:19 Order name: Physical Therapy Consult [facility] 06/23 11:24 Order name: SARS RAPID; Complete Time: 13:28 [facility] 06/23 12:02 Order name: Glucose, Ancillary Testing; Complete Time: 13:28 [facility] 06/23 08:12 Order name: EKG - Nurse/Tech; Complete Time: 08:27 [facility] 06/23 08:12 Order name: IV Saline Lock - Large Bore; Complete Time: 08:15 [facility] 06/23 08:12 Order name: Labs collected and sent; Complete Time: 08:15 [facility] 06/23 08:12 Order name: O2 Per Protocol; Complete Time: 08:15 [facility] 06/23 08:12 Order name: O2 Sat Monitoring; Complete Time: 08:15 [facility] 06/23 08:12 Order name: Urine Dipstick-Ancillary (obtain specimen); Complete Time: 08:52 [facility] 06/23 08:12 Order name: Vital Signs; Complete Time: 08:15 [facility] 06/23 08:25 Order name: Dunlap; Complete Time: 08:52 [facility] EC:30 Rate is 79 beats/min. Rhythm is regular. QRS [place] is Normal. MO interval is normal at [facility] 124 msec. QRS interval is normal at 84 msec. QT interval is normal at 368 msec. No Q waves. T waves are Normal. No ST changes noted. Clinical impression: NSR w/ Non-specific ST/T Changes. Administered Medications: 10:42 Drug: Insulin Regular Human 5 units {Co-Signature: tw2 (Asha Franks RN).} Route: IVP; [facility] Site: right hand; 11:05 Follow up: Response: No adverse reaction [facility] 10:43 Drug: hydrALAZINE 10 mg Route: IVP; Site: right hand; [facility] 11:05 Follow up: Response: No adverse reaction [facility] 11:51 Drug: Rocephin (cefTRIAXone) 1 grams Route: IV; Rate: 1 calculated rate; Site: right [facility] hand; 13:54 Follow up: Response: No adverse reaction; IV Status: Completed infusion; IV Intake: [id number] Disposition Summary: 06/23/22 10:40 Hospitalization Ordered Hospitalization Status: Inpatient Admission [facility] Provider: Ortiz Allison [facility] Location: Telemetry/MedSur (Inpatient) [facility] Condition: Stable [facility] Problem: new [facility] Symptoms: are unchanged [facility] Bed/Room Type: Standard [facility] Room Assignment: 404(06/23/22 14:47) Diagnosis - UTI/ Urinary tract infection, site not specified [facility] - Hyperglycemia, unspecified [facility] - Hypertensive urgency [facility] Forms: - Medication Reconciliation Form [facility] - SBAR form [facility] NIH Stroke Scale - NIH Stroke Score Date: 06/23/2022 Time: 08:16 Total Score = 8 1a. Level of Consciousness (LOC) - 0(Alert) 1b. Level of Consciousness (LOC) (Month \T\ Age) - 2(Neither) 1c. LOC Commands (Open \T\ Closes Eyes/Nurse Sexual Assault) - 0(Both) 2. Best Gaze (Lateral Gaze Paresis) - 0(Normal) 3. Visual Field Loss - 0(No visual loss) 4. Facial Palsy - 0(Normal) 5a. Left Arm: Motor (10-second hold) - 1(Drift) 5b. Right Arm: Motor (10-second hold) - 1(Drift) 6a. Left Leg: Motor (5-second hold - always test supine) - 1(Drift) 6b. Right Leg: Motor (5-second hold - always test supine) - 1(Drift) 7. Limb Ataxia (finger/nose \T\ heel/cabral - test with eyes open) - 2(Present in two limbs) 8. Sensory Loss (pinprick arms/legs/face) - 0(Normal) 9. Best Language: Aphasia (description/naming/reading) - 0(No aphasia) 10. Dysarthria (speech clarity - read or repeat words) - 0(Normal) 11. Extinction and Inattention (visual/tactile/auditory/spatial/personal) - 0(No abnormality) Initials: [facility] Addendum: 06/26/2022 06:29 Co-signature as Attending Physician, Wilfrido Johnson MD. rn Signatures: Dispatcher [employer] Stefania Pratt RN RN Wilfrido Quevedo MD MD rn Lewis, Lynsay, RN RN ll1 Joanie Gonzalez, DISPLAY MECHANIC DISPLAY MECHANIC [facility] Asha Franks RN tw2 Corrections: (The following items were deleted from the chart) 06/23 08:19 08:13 Onset: The symptoms/episode began/occurred at an unknown time. and became [facility] worse last night, jh7 09:07 08:16 Chest/axilla: Normal chest wall appearance and motion. Nontender with no [facility] deformity. No lesions are appreciated. Cardiovascular: Regular rate and rhythm with a normal S1 and S2. No gallops, murmurs, or rubs. Normal PMI, no JVD. No pulse deficits. Abdomen/GI: Soft, non-tender, with normal bowel sounds. No distension or tympany. No guarding or rebound. No evidence of tenderness throughout. Back: No spinal tenderness. No costovertebral tenderness. Full range of motion. Skin: Warm, dry with normal turgor. Normal color with no rashes, no lesions, and no evidence of cellulitis. MS/ Extremity: Pulses equal, no cyanosis. Neurovascular intact. Full, normal range of motion. [facility] 13:58 11:19 60g Consistent Carbohydrate (ADA 1800/2000) ordered. EDMS EDMS 13:58 11:19 Basic Metabolic Panel ordered. EDMS EDMS 13:58 11:19 CBC with Automated Diff ordered. EDMS EDMS 13:58 11:19 Urinalysis ordered. EDMS EDMS 14:47 10:40 [facility] dw
[2022-06-23] MEDS ORDERED: INSULIN -REGULAR HUMAN 50 UNIT/0.5 ML ML SQ SCH (11:30)
[2022-06-23 11:54] LABS: SARS-CoV-2 Antigen Rapid Res Negative (Negative)
[2022-06-23] MEDS ORDERED: NACHLORIDE 0.45% 1,000 ML IV SCH (12:00)
[2022-06-23] MEDS ORDERED: GLUCAGON 1 MG/VIAL IM PRN ×2 (15:36→17:02)
[2022-06-23] MEDS ORDERED: D10W 250 ML BAG IV PRN ×2 (16:05→17:30)
[2022-06-23] MEDS: NACHLORIDE 0.45% 1,000 ML IV SCH (16:24)
[2022-06-23] MEDS: INSULIN -REGULAR HUMAN 50 UNIT/0.5 ML ML SQ SCH ×2 (16:25→20:33)
--- NOTE | 2022-06-23 17:06 | RAD REPORT ---
EXAM DESCRIPTION: MRIFoot Right Wo Cont06/23/2022 4:39 pm CLINICAL HISTORY: Right foot pain COMPARISON: 2010 TECHNIQUE: Axial, sagittal and coronal magnetic resonance imaging of the right foot was obtained. FINDINGS: Abnormal signal involves most of the second distal phalanx compatible with osteomyelitis. Edema is present adjacent soft tissue. A soft tissue ulceration is present. Prominent edema within the dorsal subcutaneous tissues. No fracture or dislocation IMPRESSION: Osteomyelitis second distal phalanx
--- NOTE | 2022-06-23 17:35 | P.HP ---
Certification for Inpatient Patient admitted to: Inpatient With expected LOS: >2 Midnights Practitioner: I am a practitioner with admitting privileges, knowledge of patient current condition, hospital course, and medical plan of care. Services: Services provided to patient in accordance with Admission requirements found in Title 42 Section 412.3 of the Code of Federal Regulations Patient History Date of Service: 06/23/22 Reason for admission: CONFUSION, WEAKNESS, FALLS, UNCONTROLLED DM History of Present Illness: ZION HAS BEEN A NON COMPLIANT DIABETIC FOR LONG YEARS. I HAVE KNOWN HER FOR MANY YEARS AND I CAN TELL THAT SHE OR HAVE NEVER BEEN ABLE TO CONTROL DM OR FOLLOW DIET. TODAY I WALK IN THE HOSPITAL AND SHE IS EATING POTATOES WITH OTHER CARBS. THEY HAVE BEEN ADVISED ABOUT DIET AND INSULIN FOR LONG DURATION. SHE IS TRYING TO TAKE HER OWN INSULIN AND HAS NEVER BEEN ABLE TO FOLLOW ADVISES. SHE HAS NOW PARKINSON'S AND DEMENTIA. SHE COMES IN WITH AMS, WEAKNESS AND IS FOUND TO HAVE UTI ON CATH SPECIMEN AND GLUCOSE OF 550. Allergies No Known Allergies Allergy (Unverified 07/22/19 19:59) Home medications list reviewed: Yes Home Medications: Atorvastatin Calcium 80 mg PO DAILY 07/23/19 Hum Insulin NPH/Reg Insulin Hm [Humulin 70-30 Vial] 35 units SQ BID 07/23/19 Levothyroxine [Synthroid*] 75 mcg PO [id number] 07/23/19 Propranolol HCl 60 mg PO DAILY 07/23/19 Lisinopril [Zestril] 20 mg PO DAILY 06/23/22 - Past Medical/Surgical History Has patient received pneumonia vaccine in the past: Yes Diabetic: Yes -: HTN -: DM -: hypothyroidism -: HLD -: CVA- 6 months ago -: hysterectomy -: neck sx - Social History Smoking Status: Former smoker Alcohol use: No CD- Drugs: No Caffeine use: No Place of Residence: Home Review of Systems 10-point ROS is otherwise unremarkable General: Weakness Physical Examination - Vital Signs Temperature: 98.6 F Blood Pressure: 151/79 Pulse: 97 Respirations: 16 Pulse Ox (%): 94 - Physical Exam General: Oriented x2, Mild distress HEENT: Atraumatic, PERRLA, Mucous membr. moist/pink, EOMI, Sclerae nonicteric Neck: Supple, 2+ carotid pulse no bruit, No LAD, Without JVD or thyroid abnormality Respiratory: Clear to auscultation bilaterally, Normal air movement Cardiovascular: Regular rate/rhythm, Normal S1 S2 Gastrointestinal: Normal bowel sounds, No tenderness Musculoskeletal: No tenderness, Other (GREAT TOE ULCER. CHRONIC SEEN BY SHINGLE PACKER IN [facility] Integumentary: No rashes Neurological: Normal gait, Normal speech, Normal strength at 5/5 x4 extr, Normal tone, Normal affect Lymphatics: No axilla or inguinal lymphadenopathy - Studies Laboratory Data (last 24 hrs) 06/23/22 13:00: Sodium Cancelled, Potassium Cancelled, BUN Cancelled, Creatinine Cancelled, Glucose Cancelled 06/23/22 13:00: WBC Cancelled, Hgb Cancelled, Hct Cancelled, Plt Count Cancelled 06/23/22 09:17: PT 11.3, INR 1.03, APTT 28.0 06/23/22 09:17: Sodium 131 L, Potassium 3.9, BUN 19 H, Creatinine 0.93, Glucose 347 H, Total Bilirubin 0.5, AST 15, ALT 17, Alkaline Phosphatase 104 06/23/22 09:17: WBC 9.60, Hgb 13.6, Hct 40.6, Plt Count 221 Assessment and Plan - Problems (Diagnosis) (1) Diabetic foot Current Visit: Yes Status: Chronic Plan: IV ABX FOR NOW IS FOR UTI AND WILL WORK FOR THIS ALSO. FU WITH [place] FOOT DOCTOR. (2) UTI (urinary tract infection) Current Visit: Yes Status: Acute Plan: IV ROCEPHIN. Qualifiers: Urinary tract infection type: acute cystitis Hematuria presence: without hematuria Qualified Code(s): N30.00 - Acute cystitis without hematuria (3) Altered mental state Current Visit: Yes Status: Acute Plan: GRADUALLY GETTING WORSE. I ADVISED ABOUT NH FOR LIFE TIME NOW. HE AGREES AND HAS STARTED PROCESS ALREADY. HE CAN'T TAKE CARE OF HER AT HOME. Qualifiers: Altered mental status type: disorientation Qualified Code(s): R41.0 - Disorientation, unspecified (4) Parkinson's disease dementia Current Visit: Yes Status: Acute (5) Uncontrolled diabetes mellitus with hyperglycemia Current Visit: Yes Status: Acute Plan: FS AC AND HS MOD SS. Qualifiers: Diabetes mellitus type: type 2 Qualified Code(s): E11.65 - Type 2 diabetes mellitus with hyperglycemia - Advance Directives Does patient have a Living Will: No Does patient have a Durable POA for Healthcare: No
[2022-06-23] MEDS ORDERED: INFLUENZA VACCINE (for 6+ mo) 0.5 ML DOSE IMVAC ONE (20:00)
[2022-06-23] MEDS: CEFTRIAXONE 1,000 MG in NA CHLORIDE 0.9% 50 ML IVPB SCH (20:33)
[2022-06-23] MEDS: INSULIN 70/30 100 UNITS/ML SQ SCH (20:33)
[2022-06-24] MEDS: LEVOTHYROXINE SOD 0.075 MG TAB PO SCH (05:22)
[2022-06-24 07:19] LABS: Potassium 3.6 mmol/L (3.5-5.1)
[2022-06-24] MEDS: INSULIN -REGULAR HUMAN 50 UNIT/0.5 ML ML SQ SCH ×5 (07:30→21:56)
[2022-06-24 08:10] LABS: Absolute Lymphocytes (CBC) 1.9 K/uL (0.7-4.9); Hematocrit 36.6 % (36.0-45.0); Lymphocytes % 18.3 % (15.3-44.8); MCV 85.9 fL (80-100); MPV 8.9 fL (7.6-11.3); RBC Red Blood Cell Count 4.26 M/uL (3.86-4.86)
[2022-06-24] MEDS: CEFTRIAXONE 1,000 MG in NA CHLORIDE 0.9% 50 ML IVPB SCH ×2 (09:00→21:55)
[2022-06-24] MEDS ORDERED: CEFTRIAXONE 1,000 MG in NA CHLORIDE 0.9% 50 ML IVPB SCH (09:00)
[2022-06-24] MEDS: INSULIN 70/30 100 UNITS/ML SQ SCH ×2 (09:00→21:56)
[2022-06-24] MEDS ORDERED: PROPRANOLOL HCL 60 MG PO SCH (09:00)
[2022-06-24] MEDS ORDERED: CEFTRIAXONE 1000 MG/VIAL ONE (09:04)
[2022-06-24] MEDS ORDERED: NA CHLORIDE 0.9% 50 ML ONE (09:05)
[2022-06-24] MEDS: ATORVASTATIN 80 MG TAB PO SCH (09:18)
[2022-06-24] MEDS: lisinopriL 20 MG TAB PO SCH (09:18)
[2022-06-24] MEDS: PROPRANOLOL HCL 10 MG TAB PO SCH (09:18)
--- NOTE | 2022-06-24 13:15 | P.PN ---
Subjective Date of Service: 06/24/22 Chief Complaint: CONFUSION, WEAKNESS, FALLS, UNCONTROLLED DM Subjective: Improving SHE IS STABLE BUT AGITATED. DOES NOT WANT TO STAY HERE. HAS MEMORY LOSS AND IS NOT APPROPRIATE. 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 Physical Examination - Vital Signs Temperature: 97.4 F Blood Pressure: 146/73 Pulse: 82 Respirations: 16 Pulse Ox (%): 97 - Physical Exam General: Oriented x1, Mild distress, Confused HEENT: Atraumatic, PERRLA, EOMI Neck: Supple, JVD not distended Respiratory: Clear to auscultation bilaterally, Normal air movement Cardiovascular: Regular rate/rhythm, Normal S1 S2 Gastrointestinal: Normal bowel sounds, No tenderness Musculoskeletal: No tenderness Integumentary: No rashes Neurological: Normal speech, Normal tone, Normal affect Lymphatics: No axilla or inguinal lymphadenopathy - Studies Laboratory Data (last 24 hrs) 06/23/22 13:00: Sodium Cancelled, Potassium Cancelled, BUN Cancelled, Creatinine Cancelled, Glucose Cancelled 06/23/22 13:00: WBC Cancelled, Hgb Cancelled, Hct Cancelled, Plt Count Cancelled Medications List Reviewed: Yes Assessment And Plan - Current Problems (Diagnosis) (1) Diabetic foot Current Visit: Yes Status: Chronic Plan: IV ABX FOR NOW IS FOR UTI AND WILL WORK FOR THIS ALSO. FU WITH [place] FOOT DOCTOR. (2) UTI (urinary tract infection) Current Visit: Yes Status: Acute Plan: IV ROCEPHIN. NO CHANGES. NH ADVISED. Qualifiers: Urinary tract infection type: acute cystitis Hematuria presence: without hematuria Qualified Code(s): N30.00 - Acute cystitis without hematuria (3) Altered mental state Current Visit: Yes Status: Acute Plan: GRADUALLY GETTING WORSE. I ADVISED ABOUT NH FOR LIFE TIME NOW. HE AGREES AND HAS STARTED PROCESS ALREADY. HE CAN'T TAKE CARE OF HER AT HOME. Qualifiers: Altered mental status type: disorientation Qualified Code(s): R41.0 - Disorientation, unspecified (4) Parkinson's disease dementia Current Visit: Yes Status: Acute (5) Uncontrolled diabetes mellitus with hyperglycemia Current Visit: Yes Status: Acute Plan: FS AC AND HS MOD SS. Qualifiers: Diabetes mellitus type: type 2 Qualified Code(s): E11.65 - Type 2 diabetes mellitus with hyperglycemia
[2022-06-24] MEDS: NACHLORIDE 0.45% 1,000 ML IV SCH (14:27)
[2022-06-25 03:46] LABS: Absolute Lymphocytes (CBC) 2.6 K/uL (0.7-4.9); Hematocrit 37.4 % (36.0-45.0); Lymphocytes % 26.3 % (15.3-44.8); MCV 86.6 fL (80-100); MPV 9.3 fL (7.6-11.3); RBC Red Blood Cell Count 4.32 M/uL (3.86-4.86)
[2022-06-25 03:59] LABS: Potassium 3.6 mmol/L (3.5-5.1)
[2022-06-25 04:28] LABS: Blood Morphology Comment NOTED (NOT SEEN); Platelet Estimate ADEQ; White Blood Cell Scan OK (OK)
[2022-06-25] MEDS: LEVOTHYROXINE SOD 0.075 MG TAB PO SCH (05:52)
[2022-06-25] MEDS: INSULIN -REGULAR HUMAN 50 UNIT/0.5 ML ML SQ SCH ×4 (07:30→20:58)
[2022-06-25] MEDS: CEFTRIAXONE 1,000 MG in NA CHLORIDE 0.9% 50 ML IVPB SCH ×2 (08:04→20:58)
[2022-06-25] MEDS: lisinopriL 20 MG TAB PO SCH (08:06)
[2022-06-25] MEDS: PROPRANOLOL HCL 10 MG TAB PO SCH (08:06)
[2022-06-25] MEDS: ATORVASTATIN 80 MG TAB PO SCH (08:06)
[2022-06-25] MEDS: NACHLORIDE 0.45% 1,000 ML IV SCH (08:13)
[2022-06-25] MEDS: INSULIN 70/30 100 UNITS/ML SQ SCH (09:00)
[2022-06-25 10:42] VITALS: O2SAT 94
--- NOTE | 2022-06-25 13:30 | P.PN ---
Subjective Date of Service: 06/25/22 Chief Complaint: CONFUSION, WEAKNESS, FALLS, UNCONTROLLED DM Subjective: No new changes SHE IS STABLE BUT AGITATED. DOES NOT WANT TO STAY HERE. HAS MEMORY LOSS AND IS NOT APPROPRIATE. IS GOING TO TALK TO [employer] WORKER FOR NH PLACEMENT. SHE IS STABLE. HAS WORSE DEMENTIA, SEDATED WITH GEODON FOR NOW. HAS PICKED SWEENY SWING BED FOR HER. Physical Examination - Vital Signs Temperature: 96.4 F Blood Pressure: 149/79 Pulse: 62 Respirations: 17 Pulse Ox (%): 100 - Physical Exam General: Oriented x1, Mild distress, Confused HEENT: Atraumatic, PERRLA, EOMI Neck: Supple, JVD not distended Respiratory: Clear to auscultation bilaterally, Normal air movement Cardiovascular: Regular rate/rhythm, Normal S1 S2 Gastrointestinal: Normal bowel sounds, No tenderness Musculoskeletal: No tenderness Integumentary: No rashes, Other (R FOURTH TOE ULCER DRY, NO PUS. NO INFLMMATION. ) Neurological: Normal speech, Normal tone, Normal affect Lymphatics: No axilla or inguinal lymphadenopathy - Studies Medications List Reviewed: Yes Assessment And Plan - Current Problems (Diagnosis) (1) Diabetic foot Current Visit: Yes Status: Chronic Plan: IV ABX FOR NOW IS FOR UTI AND WILL WORK FOR THIS ALSO. FU WITH [place] FOOT DOCTOR. CONT I V ABX CHECK DOPPLER. (2) UTI (urinary tract infection) Current Visit: Yes Status: Acute Plan: IV ROCEPHIN. NO CHANGES. MI ADVISED. Qualifiers: Urinary tract infection type: acute cystitis Hematuria presence: without hematuria Qualified Code(s): N30.00 - Acute cystitis without hematuria (3) Altered mental state Current Visit: Yes Status: Acute Plan: GRADUALLY GETTING WORSE. I ADVISED ABOUT NH FOR LIFE TIME NOW. HE AGREES AND HAS STARTED PROCESS ALREADY. HE CAN'T TAKE CARE OF HER AT HOME. Qualifiers: Altered mental status type: disorientation Qualified Code(s): R41.0 - Disorientation, unspecified (4) Parkinson's disease dementia Current Visit: Yes Status: Acute (5) Uncontrolled diabetes mellitus with hyperglycemia Current Visit: Yes Status: Acute Plan: FS AC AND HS MOD SS. Qualifiers: Diabetes mellitus type: type 2 Qualified Code(s): E11.65 - Type 2 diabetes mellitus with hyperglycemia
[2022-06-25 17:09] VITALS: BMI 28.9
--- NOTE | 2022-06-25 17:56 | RAD REPORT ---
EXAM DESCRIPTION: US - Lower Extremity Arterial Bilat - 06/25/2022 5:33 pm CLINICAL HISTORY: PVD COMPARISON: None. TECHNIQUE: Doppler evaluation of the bilateral lower extremity arterial tree performed. Waveforms we re obtained along the length of each lower extremity. Visual inspection of the lower extremity arteri al tree performed. FINDINGS: Triphasic to biphasic waveform patterns were seen along the entire length of the right low er extremity arterial tree. Atherosclerotic wall calcifications are identifiable. There is no occlusi on or focal flow restricting lesion in the right lower extremity. Left lower extremity shows biphasic waveform pattern in the common femoral and superficial femoral ar teries. The left popliteal, posterior tibial and dorsalis pedis arteries show monophasic waveform pat tern. Wall calcifications are similar to the right. An occlusion or focal flow restricting lesion is not identifiable. IMPRESSION: No occlusion or focal flow restricting lesion identifiable. Bilateral lower extremity peripheral arterial disease is present, mild on the right and moderate on t he left.
[2022-06-26] MEDS ORDERED: HYDRALAZINE HCL 20 MG/ML VIAL ONE (04:50)
[2022-06-26] MEDS: HYDRALAZINE HCL 20 MG/ML VIAL IV PRN ×2 (04:53→08:17)
[2022-06-26] MEDS ORDERED: ONDANSETRON 4 MG/2 ML VIAL IV PRN (05:40)
[2022-06-26 05:51] LABS: Absolute Lymphocytes (CBC) 1.7 K/uL (0.7-4.9); Hematocrit 41.4 % (36.0-45.0); Lymphocytes % 14.8 % (15.3-44.8); MCV 85.9 fL (80-100); MPV 9.7 fL (7.6-11.3); RBC Red Blood Cell Count 4.82 M/uL (3.86-4.86)
[2022-06-26] MEDS: LEVOTHYROXINE SOD 0.075 MG TAB PO SCH (06:00)
[2022-06-26] MEDS: NACHLORIDE 0.45% 1,000 ML IV SCH (06:00)
[2022-06-26] MEDS: INSULIN -REGULAR HUMAN 50 UNIT/0.5 ML ML SQ SCH ×4 (07:30→20:50)
--- NOTE | 2022-06-26 07:44 | RAD REPORT ---
EXAM DESCRIPTION: CT - Ct Stroke Brain Wo Cont - 06/26/2022 5:14 am CLINICAL HISTORY: 81 years Female R/O CVA TECHNIQUE: Multiple axial CT images of the brain were performed followed by sagittal and coronal rec onstructed images. The CT study is performed according to ALARA (as low as reasonably achievable) or ALARA/IMAGE GENTLY, with automatic adjustment of mA and/or kV according to patient size. Performed on: 06/26/2022 at 5:03 AM COMPARISON: 06/23/2022. FINDINGS: Limitations: There is motion artifact on the images resulting in degradation of image qual ity. Brain: There is no evidence of mass, acute mass effect or midline shift. There are no acute extra-axi al fluid collections. There is no evidence of acute intracranial hemorrhage. The cerebral sulci and ventricles are prominent consistent with mild cerebral volume loss. There are scattered areas of dec reased attenuation within the subcortical and periventricular white matter most likely due to mild ch ronic microangiopathy. There is no evidence of a hyperdense MCA. Paranasal Sinuses and Mastoids: There is no significant mucosal thickening of the paranasal sinuses. The mastoid air cells are clear. Orbits: The orbital contents are grossly unremarkable. Bones: No acute osseous abnormalities are identified. Soft Tissues: No focal soft tissue abnormalities are identified. IMPRESSION: 1. There is no evidence of acute intracranial pathology or significant change when com pared to the prior study. 2. Mild cerebral atrophy with findings most likely due to chronic microangiopathy. 3. There is motion artifact on the images resulting in degradation of image quality. Electronically signed by: Mary Murray DO 06/26/2022 5:29 AM CDT Due to temporary technical issues with the PACS/Fluency reporting system, reports are being signed by the in house radiologists without review as a courtesy to insure prompt reporting. The interpreting radiologist is fully responsible for the content of the report.
[2022-06-26] MEDS: INSULIN 70/30 100 UNITS/ML SQ SCH ×2 (07:46→15:49)
[2022-06-26] MEDS: ATORVASTATIN 80 MG TAB PO SCH (07:47)
[2022-06-26] MEDS: PROPRANOLOL HCL 10 MG TAB PO SCH (07:47)
[2022-06-26] MEDS: lisinopriL 20 MG TAB PO SCH (07:47)
[2022-06-26] MEDS ORDERED: LORazepam 2 MG/ML VIAL IV ONE (07:58)
[2022-06-26] MEDS: levETIRAcetam 250 MG in NA CHLORIDE 0.9% 100 ML IV SCH ×2 (10:40→20:23)
[2022-06-26] MEDS: CEFTRIAXONE 1,000 MG in NA CHLORIDE 0.9% 50 ML IVPB SCH ×2 (10:40→20:25)
--- NOTE | 2022-06-26 10:54 | RAD REPORT ---
EXAM DESCRIPTION: MRI - Brain Wo Cont - 06/26/2022 10:38 am CLINICAL HISTORY: R/O CVA COMPARISON: Ct Stroke Brain Wo Cont dated 06/26/2022 TECHNIQUE: Sagittal T1-weighted images were obtained along with PD/heavily T2-weighted and T2-FLAIR images. Axial DWI and ADC mapping sequences were also obtained along with coronal heavily T2-weighted images were obtained. FINDINGS: Moderately limited due to motion. No intracranial hemorrhage, mass or acute infarction. There is no edema or shift of midline structure s. No extra-axial fluid collections. Signal voids are seen as a normal finding in the major intracran ial vessels. Cerebral atrophy. Mild chronic small vessel ischemic changes. Possible small remote infa rct versus white matter disease in the central sean. Mastoid air cells and paranasal sinuses are clear. IMPRESSION: No acute intracranial abnormality. Specifically, no evidence of acute infarct. Mild urban renewal manager melony small vessel ischemic changes. Question remote pontine infarct versus chronic small vessel ischem ic changes.
--- NOTE | 2022-06-26 14:34 | EKG ---
Test Date: 2022-06-23 Test Time: 08:28:41 Stars Analytical Lead: LML MEASUREMENT RESULTS: Intervals: Rate: 79 SC: 124 QRSD: 84 QT: 368 QTc: 421 [place]: P: SC: 124 QRS: -42 T: 108 INTERPRETIVE STATEMENTS: Normal sinus rhythm with sinus arrhythmia Left axis deviation Cannot rule out Anterior infarct, age undetermined Abnormal ECG Compared to ECG 07/22/2019 16:24:18 Myocardial infarct finding now present Sinus bradycardia no longer present Electronically Signed On 06-26-22 14:31:40 CDT by Jayme Sharif
--- NOTE | 2022-06-26 19:11 | CON ---
Date of Consultation: 06/26/2022 Reason For Consultation: Consultation called because of a possible seizure. History Of Present Illness: Ms. Luna is an 81-year-old right-handed patient admitted [facility] with confusion, weakness, falls, and uncontrolled diabetes mellitus along with urinary tract infection who reportedly had seizure-like activity today, that is 06/26/2022. She came into [facility] on 06/23/2022 with symptoms mentioned above, except apparently a seizure ea rlier today. There is no description of the episode. Nurse says it looks like she was shaking or se izure like, but it was not clear what it was. In terms of how long, that is not recorded, and the pa tient has no report of tongue biting or loss of bowel and bladder control. She was given Keppra 250 mg every 12 hours, and she did receive some Ativan and was sent to have an MRI. After the Keppra and Ativan, there was no further seizure-like activity and MRI was done. MRI of the brain did not show an acute ischemic or hemorrhagic finding. The study did show a possible small remote infarct versus white matter disease in the central sean. A CT scan identified mild cerebral atrophy with chronic sm all vessel disease, no findings of acute and there was motion artifact that degraded the quality of [facility] image. At the time of my evaluation, the patient is back from [facility] and sedated with Ativan. Allergies: NO KNOWN DRUG ALLERGIES. Medications: At home are atorvastatin 10 mg daily, insulin 70/30 at 35 units twice daily, Synthroid 75 mcg daily, propranolol 60 mg daily, and lisinopril 20 mg daily. Past Medical History: Hypertension, diabetes, hypothyroidism, dyslipidemia, and stroke 6 months ago. Past Surgical History: Hysterectomy and neck surgery. Social History: No current smoking, smoked in the past. No alcohol or IV drug abuse. Review of Systems: Not able to obtain review of systems as the patient is sedated with Ativan. The chart notes that ellis or to coming in today of confusion, disorientation, and diffuse weakness. Physical Examination: Vital Signs: Blood pressure 121/66, pulse 79, respiratory rate 14, temperature 99.6, oxygen saturati on 94%. Weight 179 pounds, 5 feet 6 inches, BMI 29. General: Ms. Luna is sleeping in bed after she received Ativan. HEENT: She appears to be normocephalic and atraumatic. Sclerae are anicteric. Oropharynx moist. Abdomen: Soft. Chest: Clear. Extremities: No edema or cyanosis noted. Neurologic: Unable to do a neurological exam as patient is sedated. Her face is symmetric and she h as normal tone in the upper and lower extremities. Reflexes are symmetric. Laboratory Studies: Complete blood count with differential shows slightly elevated white blood cell count of 11.5, neutrophils elevated at 76.6, hemoglobin and hematocrit normal. INR 1.03. Sodium 131 . Potassium, chloride, carbon dioxide, and BUN normal. Creatinine is 0.82. Glucose ranged from 187 -275. Calcium 8.6. Yesterday she had a very low blood sugar of 44 and calcium was slightly low at 8 .0. Liver function studies normal. Urinalysis on admission showed 20-50 bacteria, greater than 20 w june blood cells, red blood cells 10-20, occasional white blood cell clumps, trace esterase, 3+ prote in, 1+ ketone, 1+ blood, 3+ glucose. COVID-19 test is negative. Chest x-ray shows hazy appearance o f left lung and may indicate asymmetric interstitial pulmonary edema. Heart is normal in size. Assessment: Ms. Luna is an 81-year-old patient who had a possible seizure and has received Ativa n and Keppra and is now sedated. The seizure is not further described and it may have some generaliz ed shaking associated. She does have poorly-controlled diabetes mellitus, dyslipidemia, hypertension , and urinary tract infection for which she has received antibiotics . Plan: 1.Continue Keppra 250 mg twice a day. 2.Repeat electroencephalogram. 3.Continue home medications for comorbid conditions as noted. DENNIS/MODL Voice ID: [id number] Report ID: [id number]
[2022-06-27] MEDS: NACHLORIDE 0.45% 1,000 ML IV SCH ×2 (04:59)
[2022-06-27] MEDS: LEVOTHYROXINE SOD 0.075 MG TAB PO SCH (06:00)
[2022-06-27 06:01] LABS: Absolute Lymphocytes (CBC) 2.2 K/uL (0.7-4.9); Hematocrit 35.6 % (36.0-45.0); Lymphocytes % 29.8 % (15.3-44.8); MCV 85.8 fL (80-100); RBC Red Blood Cell Count 4.15 M/uL (3.86-4.86)
[2022-06-27 06:18] LABS: Potassium 3.9 mmol/L (3.5-5.1)
[2022-06-27] MEDS: INSULIN 70/30 100 UNITS/ML SQ SCH ×2 (08:00→12:27)
[2022-06-27] MEDS: HYDRALAZINE HCL 20 MG/ML VIAL IV PRN (08:06)
[2022-06-27] MEDS: levETIRAcetam 250 MG in NA CHLORIDE 0.9% 100 ML IV SCH (10:03)
[2022-06-27] MEDS: ATORVASTATIN 80 MG TAB PO SCH (10:03)
[2022-06-27] MEDS: CEFTRIAXONE 1,000 MG in NA CHLORIDE 0.9% 50 ML IVPB SCH (10:03)
[2022-06-27] MEDS: lisinopriL 20 MG TAB PO SCH (10:03)
[2022-06-27] MEDS: PROPRANOLOL HCL 10 MG TAB PO SCH (10:03)
[2022-06-27] MEDS: INSULIN -REGULAR HUMAN 50 UNIT/0.5 ML ML SQ SCH ×2 (10:04→12:28)
[2022-06-27 12:24] VITALS: BP 138/68; TEMP 98.1
--- NOTE | 2022-06-27 13:14 | PN ---
Subjective: Ms. Luna had a very rough night last night. She became disoriented more than usual and quite obtunded. Nurses called me at 4:30. I ordered CT brain stat which was negative. Later on in the morning, we did MRI brain which was also negative. I suspect clinically with her inability t o talk, which makes sense anymore, I think she could have an atypical seizure at this point and which is not uncommon for diabetics with dementia with the history of stroke in the past. Laboratory Examination: Sodium 131. Chem-7, otherwise, is normal. Sugar is 241. She is uncontroll ed diabetic for long duration. WBC count 11,500. Assessment And Plan: Possible atypical seizure. Started Keppra 250 b.i.d. IV, may need more dose in future, gradually increasing the dose, I have talked to family which is . I have made her DN R because she has very poor quality of life with the severe dementia, diabetes mellitus, amputations of the toes or forefeet, bedbound status, severe arthritis. We are also waiting for long term artemio cement. KATHYD/MODL Voice ID: [id number] Report ID: [id number]
--- NOTE | 2022-06-27 13:30 | P.DS ---
Admission Date: 06/23/22 Discharge Date: 06/27/22 Disposition: TRANSFER TO CORRECTION Discharge Condition: FAIR Reason for Admission: CONFUSION, WEAKNESS, FALLS, UNCONTROLLED DM - Problems (1) Diabetic foot Current Visit: Yes Status: Chronic (2) UTI (urinary tract infection) Current Visit: Yes Status: Acute Qualifiers: Urinary tract infection type: acute cystitis Hematuria presence: without hematuria Qualified Code(s): N30.00 - Acute cystitis without hematuria (3) Altered mental state Current Visit: Yes Status: Acute Qualifiers: Altered mental status type: disorientation Qualified Code(s): R41.0 - Disorientation, unspecified (4) Parkinson's disease dementia Current Visit: Yes Status: Acute (5) Uncontrolled diabetes mellitus with hyperglycemia Current Visit: Yes Status: Acute Qualifiers: Diabetes mellitus type: type 2 Qualified Code(s): E11.65 - Type 2 diabetes mellitus with hyperglycemia Brief History of Present Illness: ZION HAS BEEN A NON COMPLIANT DIABETIC FOR LONG YEARS. I HAVE KNOWN HER FOR MANY YEARS AND I CAN TELL THAT SHE OR HAVE NEVER BEEN ABLE TO CONTROL DM OR FOLLOW DIET. TODAY I WALK IN THE HOSPITAL AND SHE IS EATING POTATOES WITH OTHER CARBS. THEY HAVE BEEN ADVISED ABOUT DIET AND INSULIN FOR LONG DURATION. SHE IS TRYING TO TAKE HER OWN INSULIN AND HAS NEVER BEEN ABLE TO FOLLOW ADVISES. SHE HAS NOW PARKINSON'S AND DEMENTIA. SHE COMES IN WITH AMS, WEAKNESS AND IS FOUND TO HAVE UTI ON CATH SPECIMEN AND GLUCOSE OF 550. 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 SHE HAS DM WITH NEUROPATHY, STROKE IN PAST, ALL BECAUSE OF NON COMPLIANCE. SHE IS BETTER WITH ANTIBIOTICS. SHE HAD EPISODE OF OBTUNDATION AND NONVERBAL STATUS. I SUSPECTED ATYPICAL SEIZURE AND SHE DID WELL WITH KEPPRA. [facility] WILL GO TO [place] [facility] TAKE CARE OF HER. Vital Signs/Physical Exam: Temp Pulse Resp BP Pulse Ox 98.1 F 68 16 138/68 100 06/27/22 12:00 06/27/22 12:00 06/27/22 12:00 06/27/22 12:00 06/27/22 12:00 Laboratory Data at Discharge: WBC 7.40 K/uL (4.3-10.9) 06/27/22 05:46 Hgb 11.9 g/dL (12.0-15.0) L D 06/27/22 05:46 Hct 35.6 % (36.0-45.0) L 06/27/22 05:46 Plt Count 194 K/uL (152-406) 06/27/22 05:46 PT 11.3 SECONDS (9.5-12.5) 06/23/22 09:17 INR 1.03 06/23/22 09:17 APTT 28.0 SECONDS (24.3-36.9) 06/23/22 09:17 Sodium 132 mmol/L (136-145) L 06/27/22 05:41 Potassium 3.9 mmol/L (3.5-5.1) 06/27/22 05:41 BUN 17 mg/dL (7-18) 06/27/22 05:41 Creatinine 0.81 mg/dL (0.55-1.3) 06/27/22 05:41 Glucose 203 mg/dL (74-106) H 06/27/22 05:41 Total Bilirubin 0.5 mg/dL (0.2-1.0) 06/23/22 09:17 AST 15 U/L (15-37) 06/23/22 09:17 ALT 17 U/L (12-78) 06/23/22 09:17 Alkaline Phosphatase 104 U/L (45-117) 06/23/22 09:17 Home Medications: Atorvastatin Calcium 80 mg PO DAILY 07/23/19 Hum Insulin NPH/Reg Insulin Hm [Humulin 70-30 Vial] 35 units SQ BID 07/23/19 Levothyroxine [Synthroid*] 75 mcg PO [id number] 07/23/19 Propranolol HCl 60 mg PO DAILY 07/23/19 Lisinopril [Zestril] 20 mg PO DAILY 06/23/22 Followup: Ortiz Allison MD [ACTIVE - CAN ADMIT] - (Call to schedule appointment)
[2022-06-27] MEDS ORDERED: levETIRAcetam 500 MG TAB PO SCH (21:00)
--- NOTE | 2022-07-02 08:08 | EEG ---
CHART: [id number] TEST ID#: [id number] DATE OF STUDY: 06-27-2022 THE EEG WAS RECORDED PORTABLE IN THE PATIENTS ROOM ON A 17 CHANNEL MACHINE. ELECTRODES WERE APPLIED IN THE USUAL MANNER USING THE INTERNATIONAL 10-20 SYSTEM. THE WAKING BACKGROUND RHYTHM IN THIS RECORD CONSISTS OF WELL DEVELOPED AND WELL ORGANIZED WAVES OF 6-7 HZ., IN A WIDE DISTRIBUTION WHICH ATTENUATE POORLY WITH EYE OPENING. MODERATE VOLTAGE 4-6 HZ ACTIVITY IS EXPRESSED IN THE FRONTAL, CENTRAL AND TEMPORAL REGIONS. THERE ARE NO FOCAL OR LATERALIZING FEATURES. NO EPILEPTIFORM ACTIVITY APPEARS. SLEEP OCCURRED NATURALLY. IN ADDITION NORMAL SLEEP PATTERNS ARE PRESENT. HYPERVENTILATION WAS NOT PERFORMED. PHOTIC STIMULATION PRODUCED POOR DRIVING BILATERALLY. IMPRESSION: THIS IS A MILDLY ABNORMAL ROUTINE AWAKE AND ASLEEP EEG DUE TO A MILDLY SLOW BACKGROUND AND POSTERIOR DOMINANT RHYTHM. THESE ARE NON-SPECIFIC FINDINGS INDICATING THE PRESENCE OF A MILD DIFFUSE DISTURBANCE IN CEREBRAL FUNCTION. NO FOCAL, LATERALIZING, OR EPILEPTIFORM ACTIVITY OCCURRED DURING THIS STUDY.
== END 2022-06-27 15:31 | DRG 690 ==
LOC: ER 08:03 → ERHOLD 14:38 → 4TH 15:08
PROVIDERS: ADMIT Internal Medicine; ATTEND Internal Medicine
DX: N30.00 Acute cystitis without hematuria (principal); M86.671 Other chronic osteomyelitis, right ankle and foot; E11.69 Type 2 diabetes mellitus with other specified complication; E11.65 Type 2 diabetes mellitus with hyperglycemia; E11.621 Type 2 diabetes mellitus with foot ulcer; L97.509 Non-pressure chronic ulcer of other part of unspecified foot with unspecified severity; E11.40 Type 2 diabetes mellitus with diabetic neuropathy, unspecified; I10 Essential (primary) hypertension; I16.0 Hypertensive urgency; E78.5 Hyperlipidemia, unspecified; M19.90 Unspecified osteoarthritis, unspecified site; E03.9 Hypothyroidism, unspecified; G20 Parkinson's disease; F02.80 Dementia in other diseases classified elsewhere, unspecified severity, without behavioral disturbance, psychotic disturbance, mood disturbance, and anxiety; R56.9 Unspecified convulsions; Z66 Do not resuscitate; Z79.4 Long term (current) use of insulin; Z74.01 Bed confinement status; Z91.14 Patient's other noncompliance with medication regimen; Z79.899 Other long term (current) drug therapy; Z86.73 Personal history of transient ischemic attack (TIA), and cerebral infarction without residual deficits; Z79.890 Hormone replacement therapy; Z87.891 Personal history of nicotine dependence; Z90.710 Acquired absence of both cervix and uterus; Z89.429 Acquired absence of other toe(s), unspecified side; Z20.822 Contact with and (suspected) exposure to COVID-19
CPT/HCPCS: 36415; 51702; 70450; 70551; 71045; 80048; 80053; 81003; 81015; 82550; 82947; 83605; 83880; 84439; 84443; 84484; 85025; 85610; 85730; 87040; 87070; 87077; 87086; 87088; 87186; 87205; 87811; 93005; 93925; 95816; 96365; 96366; 96375; 97116; 97161; 97530; 99285; J0360; J1815; J1953; J2405

== ENCOUNTER 2023-05-30 04:10 | Inpatient (IN) | payer OTHER ==
--- OUTSIDE RECORDS SUMMARY | 2023-05-30 04:24 | XMS REPORT | Continuity of Care Document ---
:1940 Author Organization [facility] t Address [address] [place] [address] [place] [id number] Care Team Providers Name Role Phone ROCK REZA Attending Clinician Unavailable PIETER ASHER Attending Clinician Unavailable Payers Payer Name Policy Type Policy Number Effective Date Expiration Date S mumtaz MEDICARE PART A [id number] 2003 AND B 00:00:00 Problems This patient has no known problems. Allergies, Adverse Reactions, Alerts This patient has no known allergies or adverse reactions. Medications This patient has no known medications. Procedures This patient has no known procedures. Encounters Start End Encounter Admission Attending Care Care Encounter Source Date/Time Date/Time Type Type Clinicians Facility Department ID 2022-04-[address] [facility] [id number] [place] 15:12:30 [id number] [facility] 2022-01-29 Outpatient ROCK REZA [facility] [id number] [place] 09:21:09 [id number] [facility] 2022-01-[address] [facility] [id number] [place] 15:22:23 [id number] [facility] 2021-12-23 Outpatient ROCK REZA [facility] [id number] [place] 16:16:47 [id number] [facility] 2021-12-[address] [facility] [id number] [place] 11:20:19 [id number] [facility] 2021-12-[address] [facility] [id number] [place] 16:00:19 [id number] [facility] 2021-12-[address] [facility] [id number] [place] 01:04:47 [id number] [facility] 2021-12-16 Outpatient LB [facility] [id number] [place] 16:58:12 PIETER [id number] [facility] 2021-12-[address] [facility] [id number] [place] 08:14:59 [id number] [facility] 2021-12-[address] [facility] [id number] [place] 15:52:29 [id number] [facility] 2021-11-[address] [facility] [id number] [place] 09:42:35 [id number] [facility] 2021-11-[address] [facility] [id number] [place] 09:44:31 [id number] Health Results This patient has no known results.
[2023-05-30 05:52] LABS: Absolute Lymphocytes (CBC) 2.4 K/uL (0.7-4.9); Hematocrit 37.6 % (36.0-45.0); Lymphocytes % 22.2 % (15.3-44.8); MCV 88.1 fL (80-100); MPV 8.7 fL (7.6-11.3); Platelets 192 thou/uL (152-406); RBC Red Blood Cell Count 4.27 M/uL (3.86-4.86)
[2023-05-30 06:01] LABS: Protime INR 0.99
[2023-05-30 06:03] LABS: Arterial Blood Carboxyhemoglob 1.2 % (0-1.5); Blood Gas Oxyhemoglobin 34.9 % (94-97); Blood O2 Saturation 35.9 % (92-98.5)
[2023-05-30 06:22] LABS: Albumin 2.4 g/dL (3.4-5.0); Bilirubin Total 0.3 mg/dL (0.2-1.0); Potassium 4.6 mEq/L (3.5-5.1); Protein, Total 7.2 g/dL (6.4-8.2)
[2023-05-30 06:26] LABS: Thyroid Stimulating Hormone 8.36 uIU/mL (0.358-3.740)
[2023-05-30] MEDS ORDERED: NA CHLORIDE 0.9% 250 ML ONE (07:24)
[2023-05-30] MEDS ORDERED: VANCOMYCIN 1 GM/VIAL ONE (07:24)
[2023-05-30] MEDS ORDERED: NA CHLORIDE 0.9% 100 ML ONE (07:25)
[2023-05-30] MEDS ORDERED: PIPERACIL/TAZO 3.375 GM VIAL IV ONE (07:25)
[2023-05-30] MEDS ORDERED: NA CHLORIDE 0.9% 1,000 ML ONE (07:25)
[2023-05-30 07:57] LABS: Urine Bacteria Loaded /HPF (<20); Urine Bilirubin NEGATIVE (Negative); Urine Blood Negative (Negative); Urine Clarity Extremely Turbid (Clear); Urine Color Yellow (Yellow); Urine Glucose 3+ (Negative); Urine Mucus Slight /HPF (None Seen); Urine Protein TRACE (Negative); Urine RBC <5 /HPF (None Seen); Urine Urobilinogen Normal (Normal); Urine WBC Clump Occasional /HPF (None Seen); Urine pH 5.5 (5.0-7.0)
--- NOTE | 2023-05-30 08:32 | ER ---
Nurse's Notes [facility] Name: Melanie Luna Age: 82 yrs Sex: Female : 1940 Arrival Date: 05/30/2023 Time: 04:10 Bed 17 Private MD: Diagnosis: Altered mental status, unspecified;UTI/ Urinary tract infection, site not specified Presentation: 05/30 04:52 Chief complaint: EMS states: 82 YEAR OLD FEMALE COMING FROM [facility] NURSE [facility]. NURSE [facility] REPORTS PT. FELL. NO LOC. ON OUR ASSESSMENT DID NOT REPORTED PAIN. THE NURSE AT [facility] REPORTED PT. IS MORE ALTER THAN NORMAL. 04:52 Coronavirus screen: Vaccine status:. Ebola Screen: No symptoms or risks identified at [facility] this time. Initial Sepsis Screen: Does the patient meet any 2 criteria? Does the patient have a suspected source of infection? No. Patient's initial sepsis screen is negative. Risk Assessment: Do you want to hurt yourself or someone else? Patient reports no desire to harm self or others. Onset of symptoms was May 30, 2023. 04:52 Method Of Arrival: EMS: [place] [id number] 04:52 Acuity: MAGDY 3 ha1 Triage Assessment: 04:52 General: Appears uncomfortable, Behavior is cooperative. Pain: Complains of pain in ha1 NECK Unable to use pain scale. FLACC scale score is 2 out of 10. Neuro: Neuro: Level of Consciousness is awake, alert, Oriented to person, place. Cardiovascular: Capillary refill < 3 seconds Patient's skin is warm and dry. Respiratory: Airway is patent Respiratory effort is even, unlabored, Respiratory pattern is regular, symmetrical. Musculoskeletal: Circulation, motion, and sensation intact. Historical: - Allergies: 05:17 Sulfa (Sulfonamide Antibiotics); ha1 - Home Meds: 05:17 amlodipine 5 mg tablet 1 tab daily [Active]; lisinopril 20 mg Oral tablet 1 tab daily 1 [Active]; metformin 500 mg Oral Tablet 1 tab 2 times per day [Active]; propranolol 60 mg Oral tablet 1 tab daily [Active]; atorvastatin 80 mg Oral tablet 1 tab daily [Active]; Lantus U-100 Insulin 100 unit/mL Sub-Q solution 24 units daily [Active]; - PMHx: 05:17 CHARCOT'S FOOT; CVA; Dementia; Diabetes - IDDM; Hypertension; Hypothyroidism; ha1 Parkinson's disease; - Immunization history:: Adult Immunizations unknown. - Social history:: Smoking status: unknown. - Family history:: not pertinent. Screenin:21 Abuse screen: Denies threats or abuse. Denies injuries from another. Nutritional ha1 screening: No deficits noted. Tuberculosis screening: No symptoms or risk factors identified. 07:00 [facility] ED Fall Risk Assessment (Adult) History of falling in the last 3 months, kc6 including since admission Yes- single mechanical fall (1 pt) Confusion or Disorientation Yes (5 pts) Intoxicated or Sedated No (0 pts) Impaired Gait Yes (1 pt) Mobility Assist Device Used Yes (1 pt) Altered Elimination Yes (1 pt) Score/Fall Risk Level 3 or more points = High Risk. Assessment: 05:00 Reassessment: SEE TRIAGE ASSESSMENT. ha1 05:20 Reassessment: PT. REFUSING CARE. EXPLAINED THE IMPORTANCE FOR CARE. ha1 06:00 Reassessment: Patient and/or family updated on plan of care and expected duration. Pain ha1 level reassessed. Patient is alert, oriented x 3, equal unlabored respirations, skin warm/dry/pink. 07:00 Reassessment: Patient appears in no apparent distress at this time. No changes from [facility] previously documented assessment. Patient and/or family updated on plan of care and expected duration. Pain level reassessed. 08:00 Reassessment: Patient appears in no apparent distress at this time. No changes from 6 previously documented assessment. Patient and/or family updated on plan of care and expected duration. Pain level reassessed. Patient is alert, oriented x 3, equal unlabored respirations, skin warm/dry/pink. 09:00 Reassessment: Patient appears in no apparent distress at this time. No changes from 6 previously documented assessment. Patient and/or family updated on plan of care and expected duration. Pain level reassessed. Patient is alert, oriented x 3, equal unlabored respirations, skin warm/dry/pink. 12:38 Reassessment: attempted to call report to 2nd floor. per CARLY Forbes, nurse is at lunch [facility] and the room is currently being cleaned. will call me back in 30min. 13:15 Reassessment: attempted to call report to CARLY Campos. no answer at this time. kc6 13:24 Reassessment: attempted to call report to 2nd floor. no answer at this time. spoke with corby Forbes RN, stated she will go find Beth. Vital Signs: 04:52 BP 153 / 73; Pulse 68; Resp 18 S; Temp 97.9; Pulse Ox 100% on R/A; Weight 79.38 kg; ha1 06:00 BP 101 / 66; Pulse 74; Resp 18 S; Pulse Ox 96% on R/A; ha1 07:52 BP 129 / 87; Pulse 65; Resp 17 S; Pulse Ox 100% on R/A; kc6 09:29 BP 145 / 60; Pulse 68; Resp 18 S; Pulse Ox 99% on R/A; kc6 ED Course: 04:52 Patient arrived in ED. bp 04:52 Patient has correct armband on for positive identification. Bed in low position. Call ha1 light in reach. Side rails up X2. 05:07 Jaspreet Hirsch MD is Attending Physician. sp4 05:17 Triage completed. ha1 05:20 Inserted saline lock: 22 gauge in right antecubital area, using aseptic technique. ha1 Blood collected. 05:45 Nahed Lin RN is Primary Nurse. ha1 06:38 CT Head Brain wo Cont In Process Unspecified. EDMS 07:00 Report received from Nahed Lin RN. kc6 07:00 Arm band placed on. kc6 07:29 Dunlap cath inserted, using sterile technique, 16 Fr., by ri, balloon inflated, to kc6 gravity drainage, clamped. urine specimen collected. other with Nahed Lin RN returned clear yellow urine. Patient tolerated well. 08:06 Attending Physician role handed off by Jaspreet Hirsch MD kdr 08:06 Arnulfo Wu MD is Attending Physician. kdr 08:31 Ortiz Alilson MD is Hospitalizing Provider. kdr Administered Medications: 07:44 Drug: NS 0.9% IV 1000 ml IV at 125 ml/hr continuous Route: IV; Rate: 125 ml/hr; Site: kc6 right antecubital; 09:30 Follow up: Response: No adverse reaction; IV Status: Infusion continued upon admission; [facility] IV Intake: 1000ml 07:44 Drug: Piperacillin-Tazobactam IVPB 3.375 grams IVPB once over 60 mins; (mix in NS 100 kc6 mL) Route: IVPB; Infused Over: 60 mins; Site: right antecubital; 08:11 Follow up: Response: No adverse reaction; IV Status: Completed infusion; IV Intake: kc6 100ml 08:21 Drug: vancoMYCIN IVPB 1 grams IVPB once over 2 hrs Route: IVPB; Infused Over: 2 hrs; kc6 Site: right antecubital; 09:30 Follow up: Response: No adverse reaction; IV Status: Completed infusion; IV Intake: kc6 250ml Intake: 08:11 IV: 100ml; Total: 100ml. kc6 09:30 IV: 1000ml; Total: 1100ml. kc6 09:30 IV: 250ml; Total: 1350ml. kc6 Outcome: 08:31 Decision to Hospitalize by Provider. kdr 13:38 Patient left the ED. eb Signatures: Dispatcher [employer] EDMS Arnulfo Wu MD MD kdr Peltier, Brian, RN RN Ana Metcalf Nahed Lin RN RN ha1 Kimberli Farias RN RN kc6 Jaspreet Hirsch MD MD sp4
--- NOTE | 2023-05-30 08:33 | EDPHYS ---
Physician Documentation [facility] Name: Melanie Luna Age: 82 yrs Sex: Female : 1940 Arrival Date: 05/30/2023 Time: 04:10 Bed 17 Private MD: ED Physician Arnulfo Wu HPI: 05/30 07:50 This 82 yrs old Female presents to ER via EMS with complaints of Fall Injury, sp4 Altered Mental Status. 08:11 EMS brings patient from assisted living facility. Patient has history of Charcot foot, sp4 dementia, diabetes, hypertension, hypothyroidism, Parkinson's disease, CVA. Patient was found to be less responsive than usual, patient is able to state her name no additional history available. . Historical: - Allergies: 05:17 Sulfa (Sulfonamide Antibiotics); ha1 - Home Meds: 05:17 amlodipine 5 mg tablet 1 tab daily [Active]; lisinopril 20 mg Oral tablet 1 tab daily ha1 [Active]; metformin 500 mg Oral Tablet 1 tab 2 times per day [Active]; propranolol 60 mg Oral tablet 1 tab daily [Active]; atorvastatin 80 mg Oral tablet 1 tab daily [Active]; Lantus U-100 Insulin 100 unit/mL Sub-Q solution 24 units daily [Active]; - PMHx: 05:17 CHARCOT'S FOOT; CVA; Dementia; Diabetes - IDDM; Hypertension; Hypothyroidism; ha1 Parkinson's disease; - Immunization history:: Adult Immunizations unknown. - Social history:: Smoking status: unknown. - Family history:: not pertinent. ROS: 08:11 Constitutional: Negative for fever, chills, and weight loss, sp4 08:11 All other systems are negative, Exam: 08:11 Constitutional: This is a well developed, well nourished patient who is awake, able to sp4 say her name only, oriented to self only disoriented to time others and location, ill-appearing but nontoxic Head/Face: Normocephalic, atraumatic. Eyes: Pupils equal round and reactive to light, extra-ocular motions intact. Lids and lashes normal. Conjunctiva and sclera are not injected. Cornea within normal limits. Periorbital areas with no swelling, redness, or edema. ENT: Nares patent. No nasal discharge, no septal abnormalities noted. Tympanic membranes are normal and external auditory canals are clear. Oropharynx with no redness, swelling, or masses, exudates, or evidence of obstruction, uvula midline. Mucous membranes moist. Neck: Trachea midline, no thyromegaly or masses palpated, and no cervical lymphadenopathy. Supple, full range of motion without nuchal rigidity, or vertebral point tenderness. Chest/axilla: Normal chest wall appearance and motion. Nontender with no deformity. No lesions are appreciated. Cardiovascular: Regular rate and rhythm with a normal S1 and S2. No gallops, murmurs, or rubs. Normal PMI, no JVD. No pulse deficits. Respiratory: Lungs have equal breath sounds bilaterally, clear to auscultation and percussion. No rales, rhonchi or wheezes noted. No increased work of breathing, no retractions or nasal flaring. Abdomen/GI: Soft, non-tender, with normal bowel sounds. No distension or tympany. No guarding or rebound. No evidence of tenderness throughout. Back: No spinal tenderness. No costovertebral tenderness. Skin: Warm, dry with normal turgor. Normal color with no rashes, no lesions, and no evidence of cellulitis. MS/ Extremity: Pulses equal, no cyanosis. Neurovascular intact. Full, normal range of motion. Neuro: Awake and alert, GCS 13 oriented to person Cranial nerves II-XII grossly intact. Motor strength 5/5 in all extremities. Sensory grossly intact. Psych: Awake, alert, with orientation to person, 08:13 ECG was reviewed by the Attending Physician. EKG time 0 620, there is atrial sp4 fibrillation rate of 70, Vital Signs: 04:52 BP 153 / 73; Pulse 68; Resp 18 S; Temp 97.9; Pulse Ox 100% on R/A; Weight 79.38 kg; ha1 06:00 BP 101 / 66; Pulse 74; Resp 18 S; Pulse Ox 96% on R/A; ha1 07:52 BP 129 / 87; Pulse 65; Resp 17 S; Pulse Ox 100% on R/A; kc6 09:29 BP 145 / 60; Pulse 68; Resp 18 S; Pulse Ox 99% on R/A; kc6 MDM: 05:08 Patient medically screened. sp4 07:51 ED course: CT head - FINDINGS: There is no acute hemorrhage, mass effect or midline sp4 shift. Matias-white differentiation is preserved. There is no hydrocephalus. There is no significant volume loss for age. The calvarium is intact. Orbits and globes are unremarkable. The paranasal sinuses are clear. Mastoid air cells are clear. IMPRESSION: No acute intracranial findings. Electronically signed by: Wesly Cooper MD 05/30/2023 6:58 AM. 08:12 Differential diagnosis: abrasion, closed head injury, contusion, fracture, laceration, sp4 multiple trauma, sprain, strain. Data reviewed: vital signs, nurses notes, EMS record, old medical records, lab test result(s), EKG, radiologic studies, CT scan, plain films. Consideration of Admission/Observation Escalation of care including admission/observation considered. Transition of care: After a detail discussion of the patient's case, care is transferred to Arnulfo Wu MD. 05/30 05:08 Order name: Blood Culture Adult (2) sp4 05/30 05:08 Order name: CBC with Diff; Complete Time: 07:51 sp4 05/30 05:08 Order name: CMP; Complete Time: 07:51 sp4 05/30 05:08 Order name: Lactate w/ 2H reflex if indic.; Complete Time: 07:51 sp4 05/30 05:08 Order name: Protime (+inr); Complete Time: 07:51 sp4 05/30 05:08 Order name: Ptt, Activated; Complete Time: 07:51 sp4 05/30 05:08 Order name: Urinalysis w/ reflexes; Complete Time: 08:23 sp4 05/30 05:08 Order name: ABG; Complete Time: 07:51 sp4 05/30 05:08 Order name: TSH; Complete Time: 07:51 sp4 05/30 05:08 Order name: T4 Free; Complete Time: 07:51 sp4 05/30 08:00 Order name: Urine Culture EDMS 05/30 08:39 Order name: Basic Metabolic Panel EDMS 05/30 08:39 Order name: Basic Metabolic Panel EDMS 05/30 08:39 Order name: CBC with Automated Diff EDMS 05/30 08:39 Order name: CBC with Automated Diff EDMS 05/30 11:39 Order name: Glucose, Ancillary Testing EDMS 05/30 05:08 Order name: CT Head Brain wo Cont sp4 05/30 05:08 Order name: EKG; Complete Time: 05:09 sp4 05/30 08:39 Order name: 60g Consistent Carbohydrate (ADA 1800/1999) EDMS 05/30 05:08 Order name: Accucheck; Complete Time: 06:30 sp4 05/30 05:08 Order name: Cardiac monitoring; Complete Time: 05:45 sp4 05/30 05:08 Order name: Cath; Complete Time: 07:30 sp4 05/30 05:08 Order name: EKG - Nurse/Tech; Complete Time: 06:30 sp4 05/30 05:08 Order name: IV Saline Lock - Large Bore; Complete Time: 05:45 sp4 05/30 05:08 Order name: Labs collected and sent; Complete Time: 05:45 sp4 05/30 05:08 Order name: O2 Per Protocol; Complete Time: 05:45 sp4 05/30 05:08 Order name: O2 Sat Monitoring; Complete Time: 06:30 sp4 05/30 05:08 Order name: Vital Signs; Complete Time: 06:30 sp4 EC:13 Rate is 70 beats/min. Rhythm is irregularly irregular, A fib. QRS [place] is Normal. QRS sp4 interval is normal. Clinical impression: No evidence of ischemia. Interpreted by me. Administered Medications: 07:44 Drug: NS 0.9% IV 1000 ml IV at 125 ml/hr continuous Route: IV; Rate: 125 ml/hr; [facility]; 09:30 Follow up: Response: No adverse reaction; IV Status: Infusion continued upon admission; [facility] IV Intake: 1000ml 07:44 Drug: Piperacillin-Tazobactam IVPB 3.375 grams IVPB once over 60 mins; (mix in NS 100 kc6 mL) Route: IVPB; Infused Over: 60 mins; Site: right antecubital; 08:11 Follow up: Response: No adverse reaction; IV Status: Completed infusion; IV Intake: kc6 100ml 08:21 Drug: vancoMYCIN IVPB 1 grams IVPB once over 2 hrs Route: IVPB; Infused Over: 2 hrs; kc6 Site: right antecubital; 09:30 Follow up: Response: No adverse reaction; IV Status: Completed infusion; IV Intake: kc6 250ml Disposition Summary: 05/30/23 08:31 Hospitalization Ordered Notes: Hospitalization Status: Inpatient Admission kdr Provider: Ortiz Allison Condition: Fair kdr Problem: new kdr Symptoms: have improved kdr Bed/Room Type: Standard kdr Location: Telemetry/MedSurg (Inpatient)(05/30/23 12:27) eb Room Assignment: 202(05/30/23 12:27) eb Diagnosis - Altered mental status, unspecified kdr - UTI/ Urinary tract infection, site not specified kdr Forms: - Medication Reconciliation Form kdr - SBAR form kdr - Leadership Thank You Letter kdr Signatures: Dispatcher [employer] EDMS Arnulfo Wu MD MD kdr Ana Farnsworth Heidy RN RN ha1 Kimberli Farias RN RN kc6 Jaspreet Hirsch MD MD sp4 Corrections: (The following items were deleted from the chart) 05:55 05:08 Chest Single View+RAD.RAD.BRZ ordered. EDOR EDOR 09:09 08:31 Telemetry/MedSurg (Inpatient) kdr eb 09:09 08:31 kdr eb 12:27 09:09 [facility] ER HOLD eb eb 12:27 09:09 ERHOLD- eb eb
[2023-05-30] MEDS ORDERED: ACETAMINOPHEN 500 MG TAB PO PRN (08:34)
[2023-05-30] MEDS ORDERED: GLUCAGON 1 MG/VIAL IM PRN (08:34)
[2023-05-30] MEDS ORDERED: D50W 25 GM/50 ML SYRINGE IV PRN (08:34)
[2023-05-30] MEDS: CEFTRIAXONE 1,000 MG in NA CHLORIDE 0.9% 50 ML IVPB SCH ×2 (09:00→21:17)
--- NOTE | 2023-05-30 09:55 | P.HP ---
Certification for Inpatient Patient admitted to: Inpatient With expected LOS: >2 Midnights Practitioner: I am a practitioner with admitting privileges, knowledge of patient current condition, hospital course, and medical plan of care. Services: Services provided to patient in accordance with Admission requirements found in Title 42 Section 412.3 of the Code of Federal Regulations Patient History Date of Service: 05/30/23 Reason for admission: GEN WEAKNESS. History of Present Illness: ZION IS A DIABETIC WITH MANY COMPLICATIONS WITH CVA, CHARCOT NEUROPATHY, SEVERE DJD, BRITTLE DM, RETINOPATHY, COMES IN FROM [facility] AFTER A FALL THIS AM. HER BASELINE IS POOR WITH ABILITY TO WALK FROM WHEELCHAIR TO COMMODE ONLY. SHE WHILE DOING THAT FELL. SHE HAS NO OTHER SS. ER FOUND UTI ON [facility]. ER GAVE HER TO ANTIBIOTICS VANCO AND ZOSYN. Allergies No Known Allergies Allergy (Verified 06/23/22 18:03) Home medications list reviewed: Yes Home Medications: Atorvastatin Calcium 80 mg PO DAILY 07/23/19 Levothyroxine [Synthroid*] 75 mcg PO [id number] 07/23/19 Lisinopril [Zestril] 20 mg PO DAILY 06/23/22 Amlodipine [Norvasc*] 5 mg PO DAILY 12/02/22 Metformin HCl 1 tab PO BID 12/02/22 Propranolol HCl [Propranolol HCl ER] 60 mg PO DAILY 12/02/22 Albuterol Neb [Proventil 0.083% Neb Soln] 2.5 mg NEB [id number] PRN amp 12/06/22 Aspirin Chewable [Aspirin Chewable*] 81 mg PO DAILY tab.chew 12/06/22 Hydrocodone 10/APAP 325 [[place] 10/325*] 1 tab PO Q4H PRN #15 tab 12/06/22 Insulin -Regular Human [Novolin -R*] See Protocol SQ ACHS ml 12/06/22 Insulin Glargine,Hum.rec.anlog [Semglee] 15 unit SQ BEDTIME ml 12/06/22 Insulin Lispro [Humalog*] 5 unit SQ TIDWM ml 12/06/22 Ipratropium Neb [Atrovent*] 0.5 mg NEB [id number] PRN amp 12/06/22 - Past Medical/Surgical History Diabetic: Yes -: HTN -: DM -: hypothyroidism -: HLD -: CVA- 6 months ago -: hysterectomy -: neck sx - Social History Alcohol use: No CD- Drugs: No Caffeine use: No Review of Systems 10-point ROS is otherwise unremarkable Neurological: As per HPI Physical Examination - Physical Exam General: Oriented x2, Mild distress, Confused (MILD TO MOD AT BASELINE) HEENT: Atraumatic, PERRLA, Mucous membr. moist/pink, EOMI, Sclerae nonicteric Neck: Supple, 2+ carotid pulse no bruit, No LAD, Without JVD or thyroid abnormality Respiratory: Clear to auscultation bilaterally, Normal air movement Cardiovascular: Regular rate/rhythm, Normal S1 S2 Gastrointestinal: Normal bowel sounds, No tenderness Musculoskeletal: No tenderness Integumentary: No rashes Neurological: Normal speech, Other (WEAK, GEN. ABLE TO MOVE ALL FOUR LIMBS. WASTED MUSCLES IN LEGS AND ANKLES, MILD PULSE LOSS BOTH LEGS. 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 LUKE. THIS IS GOOD BUT THEY GAVE HER EXCESSIVE ANTIBIOTICS. UTI NEEDS ONLY ROCEPHINE OR CIPRO TO COVER MOST BACTERIA. CULTURE PENDING. TARGETED ANTIBIOTICS WILL HELP US AVOID FUTURE ISSUES LIKE C DIFF COLITIS OR MRSA INFECTIONS. DISCUSSED PLAN WITH PATIENT AND . Qualifiers: - Advance Directives Does patient have a Living Will: No Does patient have a Durable POA for Healthcare: No
[2023-05-30] MEDS ORDERED: CEFTRIAXONE 1000 MG/VIAL ONE (09:56)
[2023-05-30 10:06] VITALS: BMI 27.1
[2023-05-30] MEDS: INSULIN -REGULAR HUMAN 50 UNIT/0.5 ML ML SQ SCH ×3 (11:28→21:24)
--- NOTE | 2023-05-30 13:19 | RAD REPORT ---
EXAM DESCRIPTION: CT - Head Brain Wo Cont - 05/30/2023 7:17 am CLINICAL HISTORY: AMS COMPARISON: None. TECHNIQUE: CT HEAD WITHOUT IV CONTRAST on 05/30/2023 5:08 AM CDT This exam was performed according to our departmental dose-optimization program, which includes autom ated exposure control, adjustment of the mA and/or kV according to patient size and/or use of iterati ve reconstruction technique. FINDINGS: There is no acute hemorrhage, mass effect or midline shift. Matias-white differentiation is preserved. There is no hydrocephalus. There is no significant volume loss for age. The calvarium is intact. Orbits and globes are unremarkable. The paranasal sinuses are clear. Mastoid air cells are clear. IMPRESSION: No acute intracranial findings. Electronically signed by: Wesly Cooper MD 05/30/2023 6:58 AM CDT Due to temporary technical issues with the PACS/Fluency reporting system, reports are being signed by the in house radiologists without review as a courtesy to insure prompt reporting. The interpreting radiologist is fully responsible for the content of the report.
[2023-05-31] MEDS: INSULIN -REGULAR HUMAN 50 UNIT/0.5 ML ML SQ SCH ×4 (07:30→20:50)
[2023-05-31 07:34] LABS: Absolute Lymphocytes (CBC) 2.3 K/uL (0.7-4.9); Hematocrit 37.6 % (36.0-45.0); MCV 87.9 fL (80-100); MPV 8.7 fL (7.6-11.3); Platelets 178 thou/uL (152-406); RBC Red Blood Cell Count 4.28 M/uL (3.86-4.86)
[2023-05-31] MEDS: CEFTRIAXONE 1,000 MG in NA CHLORIDE 0.9% 50 ML IVPB SCH ×2 (07:42→20:50)
[2023-05-31 07:50] LABS: Potassium 4.2 mEq/L (3.5-5.1)
[2023-05-31] MEDS ORDERED: ALBUTEROL 2.5 MG/3 ML NEB SOL NEB PRN (07:53)
[2023-05-31] MEDS ORDERED: IPRATROPIUM BROM 0.5MG/2.5ML NEB PRN (07:53)
[2023-05-31] MEDS ORDERED: HOME MED 1 EA UNK (Mirabegron [Myrbetriq] 50 MG Tab.Er.24h) PO SCH (09:00)
[2023-05-31] MEDS ORDERED: METFORMIN HCL 500 MG TAB PO SCH (09:00)
[2023-05-31] MEDS: lisinopriL 20 MG TAB PO SCH (09:20)
[2023-05-31] MEDS: ASPIRIN 81 MG CHEWABLE TABLET PO SCH (09:20)
[2023-05-31] MEDS: ATORVASTATIN 20 MG TAB PO SCH (09:20)
[2023-05-31] MEDS: PROPRANOLOL HCL 60 MG SA CAP PO SCH (09:24)
--- NOTE | 2023-05-31 14:43 | EKG ---
Test Date: 2023-05-30 Test Time: 14:25:00 Clothing Manager: LILIYA MEASUREMENT RESULTS: Intervals: Rate: 80 TN: 170 QRSD: 124 QT: 376 QTc: 433 [place]: P: 75 TN: 170 QRS: 29 T: 96 INTERPRETIVE STATEMENTS: Normal sinus rhythm Right atrial enlargement ST & T wave abnormality, consider lateral ischemia Abnormal ECG Compared to ECG 05/30/2023 06:20:33 Atrial abnormality now present ST (T wave) deviation now present Possible ischemia now present Left anterior fascicular block no longer present T-wave abnormality no longer present Electronically Signed On 05-31-23 14:41:31 CDT by Jayme Sharif
[2023-05-31] MEDS ORDERED: ENOXAPARIN 30 MG/0.3 ML SQ SCH (17:00)
--- NOTE | 2023-05-31 17:14 | P.PN ---
Subjective Date of Service: 05/31/23 Chief Complaint: GEN WEAKNESS. Subjective: Improving SHEIS LOT BETTER. SHE DENIES ANY CHEST PAIN. Review of Systems 10-point ROS is otherwise unremarkable General: Weakness Physical Examination - Vital Signs Temperature: 97.7 F Blood Pressure: 135/75 Pulse: 82 Respirations: 16 Pulse Ox (%): 91 - Physical Exam General: Oriented x3, Mild distress HEENT: Atraumatic, PERRLA, EOMI Neck: Supple, JVD not distended Respiratory: Clear to auscultation bilaterally, Normal air movement Cardiovascular: Regular rate/rhythm, Normal S1 S2 Gastrointestinal: Normal bowel sounds, No tenderness Musculoskeletal: No tenderness Integumentary: No rashes Neurological: Other (WASTED LOWER LIMBS, LOSS OF HAIR, CHARCOT JOINTS. ), Abnormal strength, Abnormal sensation, Abnormal reflexes Lymphatics: No axilla or inguinal lymphadenopathy - Studies Microbiology Data (last 24 hrs): 05/30/23 05:40 Blood - Blood Anaerobic Blood Culture - Final Medications List Reviewed: Yes Assessment And Plan - Current Problems (Diagnosis) (1) General weakness Current Visit: Yes Status: Acute Plan: PT CONSULT SHE WALKS [place] FEW STEPS [place] SHE IS ABLE TO DO SO HERE. SHE WILL GO TO [facility] IN AM. MAY NEED PT AT HOME. 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 LUKE. THIS IS GOOD BUT THEY GAVE HER EXCESSIVE ANTIBIOTICS. UTI NEEDS ONLY ROCEPHINE OR CIPRO TO COVER MOST BACTERIA. CULTURE PENDING. TARGETED ANTIBIOTICS WILL HELP US AVOID FUTURE ISSUES LIKE C DIFF COLITIS OR MRSA INFECTIONS. DISCUSSED PLAN WITH PATIENT AND . GRAM NEG BACILLI IN URINE. ID PENDING. Qualifiers:
[2023-05-31] MEDS ORDERED: LORAZEPAM 0.5 MG TABLET PO SCH (21:00)
[2023-05-31] MEDS ORDERED: INSULIN GLARGINE 100 UNIT/ML SQ SCH (21:00)
[2023-05-31] MEDS ORDERED: DIVALPROEX DR 250 MG TAB PO SCH (21:00)
[2023-06-01 05:56] VITALS: TEMP 98
[2023-06-01] MEDS ORDERED: LEVOTHYROXINE SOD 0.075 MG TAB PO SCH (06:00)
[2023-06-01] MEDS: INSULIN -REGULAR HUMAN 50 UNIT/0.5 ML ML SQ SCH ×2 (07:30→13:30)
[2023-06-01] MEDS ORDERED: METFORMIN HCL 500 MG TAB PO SCH (08:00)
[2023-06-01 08:37] VITALS: O2SAT 95
[2023-06-01] MEDS ORDERED: HOME MED 1 EA UNK (Mirabegron [Myrbetriq] 50 MG Tab.Er.24h) PO SCH (09:00)
[2023-06-01] MEDS: lisinopriL 20 MG TAB PO SCH (09:41)
[2023-06-01] MEDS: ASPIRIN 81 MG CHEWABLE TABLET PO SCH (09:41)
[2023-06-01] MEDS: CEFTRIAXONE 1,000 MG in NA CHLORIDE 0.9% 50 ML IVPB SCH (09:41)
[2023-06-01] MEDS: PROPRANOLOL HCL 60 MG SA CAP PO SCH (09:42)
[2023-06-01] MEDS: ATORVASTATIN 20 MG TAB PO SCH (09:42)
[2023-06-01 09:43] VITALS: BP 143/71
--- NOTE | 2023-06-01 13:02 | P.DS ---
Admission Date: 05/30/23 Discharge Date: 06/01/23 Disposition: ROUTINE DISCHARGE Discharge Condition: FAIR Reason for Admission: GEN WEAKNESS. 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 HER BASELINE IS POOR WITH ABILITY TO WALK FROM WHEELCHAIR TO COMMODE ONLY. SHE WHILE DOING THAT FELL. SHE HAS NO OTHER SS. ER FOUND UTI ON [facility]. ER GAVE HER TO ANTIBIOTICS VANCO AND ZOSYN. Hospital Course: ZION COMES IN WITH WEAKNESS, FOUND TO HAVE UTI, DID WELL WITH ROCEPHINE IV AND IS ABLE TO GO HOME ON [place] PO. SHE WALKS A FEW STEPS AT [facility]. SHE IS ABLE TO DO SO HERE. IF NEED WE WILL ORDER HOME HEALTH. I ASKED TO GET UTI PROBIOTIC FROM OFFICE. Vital Signs/Physical Exam: Temp Pulse Resp BP Pulse Ox 98.0 F 76 16 143/71 H 93 06/01/23 04:00 06/01/23 09:42 06/01/23 04:00 06/01/23 09:42 06/01/23 04:00 Laboratory Data at Discharge: WBC 9.40 thou/uL (4.3-10.9) 05/31/23 07:17 Hgb 12.9 g/dL (12.0-15.0) 05/31/23 07:17 Hct 37.6 % (36.0-45.0) 05/31/23 07:17 Plt Count 178 thou/uL (152-406) 05/31/23 07:17 PT 10.9 SECONDS (9.5-12.5) 05/30/23 05:43 INR 0.99 05/30/23 05:43 APTT 30.3 SECONDS (24.3-36.9) 05/30/23 05:43 Sodium 137 mEq/L (136-145) 05/31/23 07:17 Potassium 4.2 mEq/L (3.5-5.1) 05/31/23 07:17 BUN 10 mg/dL (7-18) 05/31/23 07:17 Creatinine 0.77 mg/dL (0.55-1.02) 05/31/23 07:17 Glucose 139 mg/dL (74-106) H 05/31/23 07:17 Total Bilirubin 0.3 mg/dL (0.2-1.0) 05/30/23 05:43 AST 10 U/L (15-37) L 05/30/23 05:43 ALT 20 U/L (13-56) 05/30/23 05:43 Alkaline Phosphatase 84 U/L (45-117) 05/30/23 05:43 Home Medications: Atorvastatin Calcium 80 mg PO DAILY 07/23/19 Levothyroxine [Synthroid*] 75 mcg PO [id number] 07/23/19 Lisinopril [Zestril] 20 mg PO DAILY 06/23/22 Metformin HCl 1 tab PO BID 12/02/22 Propranolol HCl [Propranolol HCl ER] 60 mg PO DAILY 12/02/22 Albuterol Neb [Proventil 0.083% Neb Soln] 2.5 mg NEB [id number] PRN amp 12/06/22 Aspirin Chewable [Aspirin Chewable*] 81 mg PO DAILY tab.chew 12/06/22 Insulin -Regular Human [Novolin -R*] See Protocol SQ ACHS ml 12/06/22 Insulin Glargine,Hum.rec.anlog [Semglee] 15 unit SQ BEDTIME ml 12/06/22 Insulin Lispro [Humalog*] 5 unit SQ TIDWM ml 12/06/22 Ipratropium Neb [Atrovent*] 0.5 mg NEB [id number] PRN amp 12/06/22 Divalproex Sodium 250 mg PO BEDTIME 05/30/23 LORazepam [Lorazepam] 0.5 mg PO BEDTIME 05/30/23 Mirabegron [Myrbetriq] 50 mg PO DAILY 05/30/23 Propranolol [Inderal LA*] 60 mg PO DAILY 05/30/23 Cefuroxime [Ceftin] 250 mg PO BID #14 tab 06/01/23 New Medications: Cefuroxime [Ceftin] 250 mg PO BID #14 tab Physician Discharge Instructions: PROBLEM: Generalized weakness; UTI INSTRUCTIONS: Diet: ADA 1800/1999 Medications: Take Cefuroxime twice a day for 7 days Followup: NONE,NONE [Primary Care Provider] -
--- NOTE | 2023-06-02 12:54 | EKG ---
Test Date: 2023-05-30 Test Time: 06:20:33 Sound Art Instructor: MATHEUS MEASUREMENT RESULTS: Intervals: Rate: 70 MS: 126 QRSD: 76 QT: 412 QTc: 444 [place]: P: 44 MS: 126 QRS: -50 T: 35 INTERPRETIVE STATEMENTS: Normal sinus rhythm Left anterior fascicular block Nonspecific T wave abnormality Abnormal ECG Compared to ECG 06/23/2022 08:28:41 Left anterior fascicular block now present T-wave abnormality now present Left-axis deviation no longer present Myocardial infarct finding no longer present Electronically Signed On 06-02-23 12:51:42 CDT by Jayme Sharif
== END 2023-06-01 16:50 | disposition home or self-care (01) | DRG 690 ==
LOC: ER 04:10 → ERHOLD 08:38 → 2ND 12:57
PROVIDERS: ADMIT Internal Medicine; ATTEND Internal Medicine
DX: N39.0 Urinary tract infection, site not specified (principal); I10 Essential (primary) hypertension; E03.9 Hypothyroidism, unspecified; E78.5 Hyperlipidemia, unspecified; M19.90 Unspecified osteoarthritis, unspecified site; E11.610 Type 2 diabetes mellitus with diabetic neuropathic arthropathy; Z88.2 Allergy status to sulfonamides; Z79.4 Long term (current) use of insulin; Z79.84 Long term (current) use of oral hypoglycemic drugs; Z86.73 Personal history of transient ischemic attack (TIA), and cerebral infarction without residual deficits; Z79.82 Long term (current) use of aspirin; Z90.710 Acquired absence of both cervix and uterus; Z79.890 Hormone replacement therapy; Z79.899 Other long term (current) drug therapy; W19.XXXA Unspecified fall, initial encounter; Y93.9 Activity, unspecified; Y92.9 Unspecified place or not applicable; Y99.9 Unspecified external cause status
CPT/HCPCS: 36415; 51702; 70450; 80048; 80053; 81001; 82805; 82947; 83605; 84439; 84443; 85025; 85610; 85730; 87040; 87077; 87086; 87088; 87186; 93005; 96365; 96367; 97110; 97161; 97530; 99284; J0696; J1650; J1815; J2543; J7030; J7050

== ENCOUNTER 2024-07-07 06:07 | Emergency (ER) | payer OTHER ==
--- OUTSIDE RECORDS SUMMARY | 2024-07-07 06:10 | XMS REPORT | Continuity of Care Document ---
Author Name Unknown Address [address] th[address] Address [address] [place] [address] Care Team Providers Care Crutching Contractor Name Role Phone ROCK REZA Attending Clinician Unavailable PIETER ASHER Attending Clinician Unavailable Payers Payer Name Policy Type Policy Number Effective Date Expirati on Date Source MEDICARE PART A AND B [id number] 2003 00:00:00 Encounters Start Date/Time End Date/Time Encounter Type Admission Type Attending Clinicians Care Facility Care Department Encounter ID Source 2022-04-11 15:12:30 Outpatient [facility] [id number] [facility] 2022-01-29 09:21:09 Outpatient ROCK REZA [facility] [id number] [facility] 2022-01-01 15:22:23 Outpatient [facility] [id number] [facility] 2021-12-23 16:16:47 Outpatient ROCK REZA [facility] [id number] [facility] 2021-12-20 11:20:19 Outpatient [facility] [id number] [facility] 2021-12-19 16:00:19 Outpatient [facility] [id number] [facility] 2021-12-17 01:04:47 Outpatient [facility] [id number] [facility] 2021-12-16 16:58:12 Outpatient PIETER ASHER [facility] [id number] [facility] 2021-12-13 08:14:59 Outpatient [facility] [id number] [facility] 2021-12-12 15:52:29 Outpatient [facility] [id number] [facility] 2021-11-27 09:42:35 Outpatient [facility] [id number] [facility] 2021-11-20 09:44:31 Outpatient [facility] [id number] [facility]
[2024-07-07 06:36] LABS: Absolute Basophils 0.1 K/uL (0-0.5); Absolute Eosinophils 0.5 K/uL (0-0.5); Absolute Lymphocytes (CBC) 2.7 K/uL (0.7-4.9); Absolute Monocytes 1.3 K/uL (0.1-1.3); Absolute Neutrophil 6.8 K/uL (1.8-8.0); Basophils % 1.2 % (0-1.3); Eosinophils % 4.1 % (0-4.4); Hematocrit 41.7 % (36.0-45.0); Hemoglobin 13.6 g/dL (12.0-15.0); Lymphocytes % 23.4 % (15.3-44.8); MCH 28.5 pg (27.0-35.0); MCHC 32.7 g/dL (32.0-36.0); MCV 87.1 fL (80-100); MPV 8.5 fL (7.6-11.3); Monocytes % 11.4 % (3.3-12.3); Neutrophils % 59.9 % (41.7-73.7); Nucleated Red Blood Cells % 0.1 % (0-0); Platelets 174 thou/uL (152-406); RBC Red Blood Cell Count 4.79 M/uL (3.86-4.86); Red Cell Distribution Width 15.8 % (12.1-15.2)
[2024-07-07] MEDS ORDERED: LORazepam 2 MG/ML VIAL ONE (06:43)
[2024-07-07 07:20] LABS: Anion Gap 7.5 mEq/L (5.0-15.0); Potassium 3.5 mEq/L (3.5-5.1); Troponin High Sensitivity 24.7 pg/mL (<58.9)
[2024-07-07 07:24] LABS: AST/SGOT 11 U/L (15-37); Albumin 2.2 g/dL (3.4-5.0); Albumin/Globulin Ratio 0.4 (1.1-1.8); Alkaline Phosphatase 67 U/L (45-117); Bilirubin Total 0.5 mg/dL (0.2-1.0); Globulin 5.1 g/dL (2.3-3.5); Lipase 40 U/L (13-75); Protein, Total 7.3 g/dL (6.4-8.2)
[2024-07-07 07:27] LABS: ALT/SGPT < 14 U/L (13-56); Bilirubin Direct < 0.2 mg/dL (0-0.2); Bilirubin Indirect, Calculated 0.3 mg/dL (0.2-0.8)
[2024-07-07 07:36] LABS: Arterial Blood Carboxyhemoglob 1.1 % (0-1.5); Blood Gas Oxyhemoglobin 91.7 % (94-97); Blood O2 Saturation 94.6 % (92-98.5)
[2024-07-07 07:37] LABS: Blood Gas THB 13.7 g/dl (12-18)
--- NOTE | 2024-07-07 07:55 | RAD REPORT ---
EXAM: CT CHEST, ABDOMEN AND PELVIS WITH CONTRAST CLINICAL INDICATION: CHEST PAIN TECHNIQUE: CT chest, abdomen and pelvis was performed, following the administration of contrast, as p er department protocol. Axial, sagittal and coronal reconstructions were obtained. One or more of the following dose reduction techniques were used: Automated exposure control, adjustment of the mA a nd/or kV according to patient size, and/or iterative reconstruction. Unless otherwise specified, incidental findings do not require dedicated imaging follow-up. COMPARISON: Plain radiograph same date FINDINGS: LUNGS: Although not specifically a CTA study, there is evidence of large pulmonary embolism in both t he left and right main pulmonary arteries. Advanced femoral emphysematous pattern is seen throughout the lung monge. Right lower lobe subpleural nodule is present measuring 7 mm. PLEURA: No pleural effusion. No pneumothorax. MEDIASTINUM AND LYMPH NODES: No mediastinal mass or fluid collection. Normal size mediastinal, hilar, and axillary lymph nodes. RV strain pattern is suspected in the heart. OSSEOUS STRUCTURES AND CHEST WALL: Intact. LIVER: Normal in size and contour. No focal lesion or biliary dilatation. Cholecystectomy clips. PANCREAS: No mass, ductal dilation, or te-pancreatic fluid. SPLEEN: Normal size. No focal lesion. ADRENALS: Normal; no mass. KIDNEYS: Normal size and contour. No hydronephrosis. URINARY BLADDER: Normal contour. GASTROINTESTINAL TRACT: No bowel obstruction, free air, significant free fluid or abscess. APPENDIX: Appendix not visualized, but no inflammatory changes in region of appendix. LYMPH NODES: No lymphadenopathy. MUSCULOSKELETAL: Moderate degenerative changes involve the spine. OTHER: IMPRESSION: There is evidence of large bilateral pulmonary emboli in both the left and right main pulmonary arter ial tree. Right heart strain pattern is present. No acute intra-abdominal or pelvic findings seen.
--- NOTE | 2024-07-07 08:05 | RAD REPORT ---
EXAMINATION: ONE VIEW CHEST XR CLINICAL INDICATION: CHEST PAIN TECHNIQUE: Frontal chest projection is submitted. Examination is limited by patient positioning and t echnique. COMPARISON: 12/01/2022 FINDINGS: Mild bilateral interstitial prominence, greater on the left is nonspecific. This may represent pulmon malachi edema. The heart is upper limit of normal in size. No displaced fractures identified.
[2024-07-07] MEDS ORDERED: HEPARIN/D5W 25,000 UNIT/500 ML BAG IV ONE (08:09)
--- NOTE | 2024-07-07 08:09 | ER ---
Nurse's Notes [facility] Name: Melanie Luna Age: 83 yrs Sex: Female : 1940 Arrival Date: 07/07/2024 Time: 06:07 Bed 3 Private MD: Diagnosis: Pulmonary embolism without acute cor pulmonale;Chest pain, unspecified Presentation: 07/07 06:15 Chief complaint: EMS states: chest pain and shortness of breath that started at 0515. cp4 Patient states symptoms have since resolved. Coronavirus screen: Client denies travel out of the [place] in the last 14 days. At this time, the client does not indicate any symptoms associated with coronavirus-19. Ebola Screen: Patient negative for fever greater than or equal to 101.5 degrees Fahrenheit, and additional compatible Ebola Virus Disease symptoms Patient denies exposure to infectious person. Patient denies travel to an Ebola-affected area in the 21 days before illness onset. No symptoms or risks identified at this time. Initial Sepsis Screen: Does the patient meet any 2 criteria? HR > 90 bpm. No. Patient's initial sepsis screen is negative. Does the patient have a suspected source of infection? No. Patient's initial sepsis screen is negative. Risk Assessment: Do you want to hurt yourself or someone else? Patient reports no desire to harm self or others. Onset of symptoms was July 07, 2024. 06:15 Method Of Arrival: EMS: [facility] 06:15 Acuity: MAGDY 3 cp4 06:41 Care prior to arrival: Medication(s) given: ASA, 81 mg, x 4, Nitroglycerin, 0.4 mg SL. al5 Triage Assessment: 06:20 General: Appears in no apparent distress. comfortable, Behavior is calm, cooperative, cp4 appropriate for age. Pain: Denies pain. EENT: No signs and/or symptoms were reported regarding the EENT system. Neuro: Level of Consciousness is awake, alert, obeys commands, Oriented to person, place, time, situation. Cardiovascular: Patient's skin is warm and dry. Rhythm is sinus rhythm. Respiratory: Airway is patent Respiratory effort is even, unlabored. GI: No signs and/or symptoms were reported involving the gastrointestinal system. : No signs and/or symptoms were reported regarding the genitourinary system. Derm: No signs and/or symptoms reported regarding the dermatologic system. Musculoskeletal: No signs and/or symptoms reported regarding the musculoskeletal system. Historical: - Allergies: 06:20 Sulfa (Sulfonamide Antibiotics); cp4 - Home Meds: 06:20 propranolol 60 mg Oral tablet 1 tab daily [Active]; metformin 500 mg Oral tablet 1 tab cp4 2 times per day [Active]; lisinopril 20 mg Oral tablet 1 tab daily [Active]; levothyroxine 75 mcg tablet 1 tab daily [Active]; Lantus U-100 Insulin 100 unit/mL Sub-Q solution 24 units daily [Active]; aspirin 81 mg oral tablet,chewable 1 tab daily [Active]; citalopram 20 mg tablet 1 tab daily [Active]; divalproex 250 mg oral Tablet, Extended Release 24 hr 1 tab daily [Active]; Myrbetriq 50 mg oral Tablet, Extended Release 24 hr 1 tab daily [Active]; - PMHx: 06:20 CHARCOT'S FOOT; CVA; Dementia; Diabetes - IDDM; Hypertension; Hypothyroidism; cp4 Parkinson's disease; - Immunization history:: Adult Immunizations. - Infectious Disease History:: Denies. - Social history:: Smoking status: Patient denies any tobacco usage or history of. - Family history:: not pertinent. Screenin:25 [facility] ED Fall Risk Assessment (Adult) History of falling in the last 3 months, cp4 including since admission No falls in past 3 months (0 pts) Confusion or Disorientation No (0 pts) Intoxicated or Sedated No (0 pts) Impaired Gait No (0 pts) Mobility Assist Device Used No (0 pt) Altered Elimination No (0 pt) Score/Fall Risk Level 0 - 2 = Low Risk Oriented to surroundings, Maintained a safe environment, Assessed \T\ reinforced patient's understanding of fall precautions, Hourly rounding (assess needs \T\ fall precautionary measures) done. Abuse screen: Denies threats or abuse. Nutritional screening: No deficits noted. Tuberculosis screening: No symptoms or risk factors identified. Assessment: 06:25 Reassessment: No changes from previously documented assessment. Pain: Denies pain. Pain cp4 does not radiate. Pain began 1 hour ago. 07:08 General: Appears in no apparent distress. Behavior is calm, cooperative. Pain: Denies mb9 pain. Neuro: Level of Consciousness is awake, alert, obeys commands, Oriented to person, place, time, situation, Appropriate for age. Cardiovascular: Heart tones S1 S2 present Patient's skin is warm and dry. Rhythm is regular. Respiratory: Airway is patent Respiratory effort is even, unlabored, Respiratory pattern is regular, symmetrical. GI: Abdomen is round non-distended. : No signs and/or symptoms were reported regarding the genitourinary system. Derm: Skin is pink, warm \T\ dry. Musculoskeletal: Range of motion: intact in all extremities. 08:29 Reassessment: No changes from previously documented assessment. Patient and/or family mb9 updated on plan of care and expected duration. Pain level reassessed. Patient is alert, oriented x 3, equal unlabored respirations, skin warm/dry/pink. 10:00 Reassessment: No changes from previously documented assessment. Patient and/or family mb9 updated on plan of care and expected duration. Pain level reassessed. Patient is alert, oriented x 3, equal unlabored respirations, skin warm/dry/pink. 10:16 Reassessment: Report given to EMS. mb9 Vital Signs: 06:15 BP 135 / 77; Pulse 101; Resp 18; Temp 98.2; Pulse Ox 99% 2 lpm ; Pain 0/10; cp4 07:08 BP 115 / 65; Pulse 98; Resp 16; Pulse Ox 97% on 2 lpm NC; mb9 08:11 Weight 79.83 kg (M); Height 5 ft. 8 in. ; mb9 08:24 BP 129 / 72; Pulse 85; Resp 18; Pulse Ox 98% on 2 lpm NC; mb9 10:13 BP 146 / 75; Pulse 84; Resp 18; Pulse Ox 98% on 2 lpm NC; mb9 08:11 Body Mass Index 26.76 (79.83 kg, 172.72 cm) mb9 06:15 Pain Scale: Adult cp4 [place] Coma Score: 07:00 Eye Response: spontaneous(4). Motor Response: obeys commands(6). Verbal Response: sp4 oriented(5). Total: 15. ED Course: 06:07 Patient arrived in ED. [email or web address] 06:13 Jaspreet Hirsch MD is Attending Physician. al5 06:14 EKG done, by ED staff, reviewed by Jaspreet Hirsch MD. al5 06:15 Rosa Kessler is Primary Nurse. cp4 06:20 Triage completed. cp4 06:20 Arm band placed on right wrist. Patient placed in an exam room, on a stretcher, on cp4 oxygen. 06:25 No provider procedures requiring assistance completed. Initial lab(s) drawn, by me, cp4 sent to lab. Maintain EMS IV. Dressing intact. Good blood return noted. Site clean \T\ dry. Gauge \T\ site: 22 L Hand. Flushed with 10 mL NS. 06:25 Bed in low position. Call light in reach. Side rails up X2. Client placed on continuous cp4 cardiac and pulse oximetry monitoring. NIBP monitoring applied. 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 Pulse ox on. NIBP on. 06:33 XRAY Chest (1 view) In Process Unspecified. EDMS 07:05 Attending Physician role handed off by Jaspreet Hirsch MD ms3 07:05 Ramon Pacheco DO is Attending Physician. ms3 07:40 CT Chest, Abdomen, Pelvis - W/Contrast In Process Unspecified. EDMS 07:43 Inserted saline lock: 22 gauge in right antecubital area, using aseptic technique. iw ,using aseptic technique. IV inserted by RODOLFO Hernandez Flushed with 10 mL NS. 08:14 initiated transfer with Ana at [facility]. bc6 08:23 Primary Nurse role handed off by Rosa Kessler mb9 08:23 Lin Patino, RN is Primary Nurse. mb9 08:24 Initial lab(s) drawn, by me, sent to lab. mb9 08:24 Ptt, Activated Sent. mb9 08:24 PT-INR Sent. mb9 08:30 Patient transferred, IV remains in place. mb9 08:31 Provided Education on: press call light if needing anything. mb9 08:37 doc to doc. bc6 09:03 acceptance for [facility] ICU bed 212. bc6 09:[address] [facility] accepted transfer. bc6 Administered Medications: 06:51 Drug: Ativan IVP 0.5 mg IVP once Route: IVP; Site: left hand; cp4 07:49 Follow up: Response: No adverse reaction mb9 08:18 Drug: Heparin (DVT/PE- Bolus per protocol) - HEParin IVP 80 units/kg IVP once; Max iw 8,000 units {Co-Signature: perla (Lin Patino RN).} Route: IVP; Site: left hand; 10:12 Follow up: Response: No adverse reaction 9 08:22 Drug: Heparin (DVT/PE Drip) 18 units/kg/hr - ([place] [address] units, D5W IV 500 ml) IV iw at calculated rate Per protocol; Max initial rate 1800 units/hr {Co-Signature: perla (Lin Patino RN).} Route: IV; Rate: calculated rate; Site: left hand; 10:12 Follow up: Response: No adverse reaction; IV Status: Infusion continued upon transfer mb9 Medication: 06:25 VIS not applicable for this client. cp4 Outcome: 08:08 ER care complete, transfer ordered by . ms3 09:56 Transferred by [facility] to [facility], Transfer form completed. ll1 Note: Kita Iyer RN 09:56 Condition: stable 09:56 Instructed on the need for transfer, 10:18 Patient left the ED. mb9 Signatures: Dispatcher [employer] EDMS Lubna Thorne RN RN iw Lewis, Lynsay, RN RN ll1 Ramon Pacheco DO DO ms3 Joanie Gerardoj6 Lin Patino, RN RN mb9 Janet Hernandez Sergey, MD MD sp4 Potter, Christina cp4 Kiera Hinojosa RN RN al5 Lin Patino RN mb9 Corrections: (The following items were deleted from the chart) 07:43 07:43 Inserted saline lock: 22 gauge in right antecubital area, using aseptic iw technique. ,using aseptic technique. IV inserted by RODOLFO Hernandez iw
--- NOTE | 2024-07-07 08:09 | EDPHYS ---
Physician Documentation [facility] Name: Melanie Luna Age: 83 yrs Sex: Female : 1940 Arrival Date: 07/07/2024 Time: 06:07 Bed 3 Private MD: ED Physician Ramon Pacheco HPI: 07/07 06:24 This 83 yrs old Female presents to ER via EMS with complaints of Chest Pain, sp4 Shortness Of Breath. 07:00 This is 83-year-old female who comes in from local intermediate [place] [address] with past medical history of diabetes mellitus with neuropathy, hypertension, Charcot foot, history of osteomyelitis of the toe, hypothyroidism, CVA, Parkinson's disease, hyperlipidemia, dementia. Patient developed midsternal chest pain associated with shortness of breath just prior to arrival. Patient's medications include aspirin, citalopram, Depakote, Lantus, levothyroxine, lisinopril, metformin, Myrbetriq, propranolol. Hemodynamically stable on arrival. . Patient is full code.. Historical: - Allergies: 06:20 Sulfa (Sulfonamide Antibiotics); cp4 - Home Meds: 06:20 propranolol 60 mg Oral tablet 1 tab daily [Active]; metformin 500 mg Oral tablet 1 tab cp4 2 times per day [Active]; lisinopril 20 mg Oral tablet 1 tab daily [Active]; levothyroxine 75 mcg tablet 1 tab daily [Active]; Lantus U-100 Insulin 100 unit/mL Sub-Q solution 24 units daily [Active]; aspirin 81 mg oral tablet,chewable 1 tab daily [Active]; citalopram 20 mg tablet 1 tab daily [Active]; divalproex 250 mg oral Tablet, Extended Release 24 hr 1 tab daily [Active]; Myrbetriq 50 mg oral Tablet, Extended Release 24 hr 1 tab daily [Active]; - PMHx: 06:20 CHARCOT'S FOOT; CVA; Dementia; Diabetes - IDDM; Hypertension; Hypothyroidism; cp4 Parkinson's disease; - Immunization history:: Adult Immunizations. - Infectious Disease History:: Denies. - Social history:: Smoking status: Patient denies any tobacco usage or history of. - Family history:: not pertinent. ROS: 07:00 Constitutional: Negative for fever, chills, and weight loss, positive for chest pain sp4 and shortness of breath. 07:00 All other systems are negative, Exam: 07:00 Constitutional: This is a well developed, well nourished patient who is awake, alert, sp4 patient is frail elderly female with persistent resting tremor. Signs of moderate physical deconditioning Head/Face: Normocephalic, atraumatic. Eyes: Pupils equal round and reactive to light, extra-ocular motions intact. Lids and lashes normal. Conjunctiva and sclera are not injected. Cornea within normal limits. Periorbital areas with no swelling, redness, or edema. ENT: Nares patent. No nasal discharge, no septal abnormalities noted. Tympanic membranes are normal and external auditory canals are clear. Oropharynx with no redness, swelling, or masses, exudates, or evidence of obstruction, uvula midline. Mucous membranes moist. Neck: Trachea midline, no thyromegaly or masses palpated, and no cervical lymphadenopathy. Supple, full range of motion without nuchal rigidity, or vertebral point tenderness. Chest/axilla: Normal chest wall appearance and motion. Nontender with no deformity. No lesions are appreciated. Cardiovascular: Regular rate and rhythm with a normal S1 and S2. No gallops, murmurs, or rubs. Normal PMI, no JVD. No pulse deficits. Respiratory: Lungs have equal breath sounds bilaterally, clear to auscultation and percussion. No rales, rhonchi or wheezes noted. No increased work of breathing, no retractions or nasal flaring. Abdomen/GI: Soft, with normal bowel sounds. No distension or tympany. No guarding or rebound. No evidence of tenderness throughout. Back: No spinal tenderness. No costovertebral tenderness. Skin: Warm, dry with normal turgor. Normal color with no rashes, no lesions, and no evidence of cellulitis. MS/ Extremity: Pulses equal, no cyanosis. Neurovascular intact. Full, normal range of motion. Neuro: Awake and alert, GCS 15, oriented to person, place, time, and situation. Cranial nerves II-XII grossly intact. Motor strength 5/5 in all extremities. Sensory grossly intact. Psych: Awake, alert, with orientation to person, place and time. Behavior, mood, and affect are within normal limits 07:00 ECG was reviewed by the Attending Physician. EKG at 0620 normal sinus rhythm with muscle tremor artifact. Rate 103 Vital Signs: 06:15 BP 135 / 77; Pulse 101; Resp 18; Temp 98.2; Pulse Ox 99% 2 lpm ; Pain 0/10; cp4 07:08 BP 115 / 65; Pulse 98; Resp 16; Pulse Ox 97% on 2 lpm NC; mb9 08:11 Weight 79.83 kg (M); Height 5 ft. 8 in. ; mb9 08:24 BP 129 / 72; Pulse 85; Resp 18; Pulse Ox 98% on 2 lpm NC; mb9 10:13 BP 146 / 75; Pulse 84; Resp 18; Pulse Ox 98% on 2 lpm NC; mb9 08:11 Body Mass Index 26.76 (79.83 kg, 172.72 cm) mb9 06:15 Pain Scale: Adult cp4 Natasha Coma Score: 07:00 Eye Response: spontaneous(4). Motor Response: obeys commands(6). Verbal Response: sp4 oriented(5). Total: 15. MDM: 06:23 Medical Screening Exam initiated sp4 07:05 Transition of care: Care assumed from Jaspreet Hirsch MD. ED course: Receive care/ ms3 report from Dr Hirsch. Patient presents with chest pain from [place]. Patient pending chest pain labs, CXR. EKG NSR.. 07:07 Differential diagnosis: acute pericarditis, anxiety, coronary artery disease chest wall sp4 pain, Cholelithiasis costochondritis, esophagitis, gastritis. HEART Score: History: Moderately Suspicious (1), ECG: Non specific repolarization disturbance / LBTB / PM (1), Age: > or = 65 years (2), Risk Factors: > or = 3 Risk factors for atherosclerotic disease (2), Troponin: < or = 1 x Normal Limit (0), Total Score = 6. The patient was given aspirin in the Emergency Department. Data reviewed: vital signs, nurses notes, lab test result(s), radiologic studies. 07:53 Independent interpretation of the following test(s) in the Emergency Department X-Ray: ms3 My interpretation is CXR image reviewed by me reveals left pleural effusion. 08:06 ED course: Discussed case with Dr Johnson and patient will need transfer for evaluation ms3 of [facility].. 07/07 06:14 Order name: Basic Metabolic Panel; Complete Time: 07:51 vc1 07/07 06:14 Order name: CBC with Diff; Complete Time: 07:51 vc1 07/07 06:14 Order name: NT PRO-BNP; Complete Time: 07:51 vc1 07/07 06:14 Order name: Troponin HS; Complete Time: 07:51 vc1 07/07 06:24 Order name: LFT's; Complete Time: 07:51 sp4 07/07 06:25 Order name: Lipase; Complete Time: 07:51 sp4 07/07 06:25 Order name: TSH; Complete Time: 07:51 sp4 07/07 06:25 Order name: T4 Free; Complete Time: 07:51 sp4 07/07 06:35 Order name: ABG; Complete Time: 07:51 sp4 07/07 08:07 Order name: PT-INR; Complete Time: 08:35 ms3 07/07 08:07 Order name: Ptt, Activated; Complete Time: 08:35 ms3 07/07 06:14 Order name: XRAY Chest (1 view); Complete Time: 08:35 vc1 07/07 06:35 Order name: CT Chest, Abdomen, Pelvis - W/Contrast; Complete Time: 08:01 sp4 07/07 06:14 Order name: Cardiac monitoring; Complete Time: 06:14 vc1 07/07 06:14 Order name: EKG - Nurse/Tech; Complete Time: 06:14 vc1 07/07 06:14 Order name: IV Saline Lock; Complete Time: 06:14 vc1 07/07 06:14 Order name: Labs collected and sent; Complete Time: 06:14 vc1 07/07 06:14 Order name: O2 Per Protocol; Complete Time: 06:14 vc1 07/07 06:14 Order name: O2 Sat Monitoring; Complete Time: 06:14 vc1 EC:00 Rate is 103 beats/min. Rhythm is regular, Sinus Rhythm. QRS [place] is Normal. AR interval sp4 is normal. QRS interval is normal. QT interval is normal. No Q waves. T waves are Normal. Clinical impression: No evidence of ischemia. Interpreted by me. Reviewed by me. Administered Medications: 06:51 Drug: Ativan IVP 0.5 mg IVP once Route: IVP; Site: left hand; cp4 07:49 Follow up: Response: No adverse reaction mb9 08:18 Drug: Heparin (DVT/PE- Bolus per protocol) - HEParin IVP 80 units/kg IVP once; Max iw 8,000 units {Co-Signature: perla (Lin Patino RN).} Route: IVP; Site: left hand; 10:12 Follow up: Response: No adverse reaction mb9 08:22 Drug: Heparin (DVT/PE Drip) 18 units/kg/[place] - ([place] [address] units, D5W IV 500 ml) IV iw at calculated rate Per protocol; Max initial rate 1800 units/hr {Co-Signature: perla (Lin Patino RN).} Route: IV; Rate: calculated rate; Site: left hand; 10:12 Follow up: Response: No adverse reaction; IV Status: Infusion continued upon transfer mb9 Disposition: 18:05 Critical Care:. ms3 Disposition Summary: 07/07/24 08:08 Transfer Ordered Notes: Transfer Location: [facility] ms3 Reason: Higher level of care ms3 Condition: Stable ms3 Problem: new ms3 Symptoms: are unchanged ms3 Accepting Physician: (07/07/24 10:18) marco a9 Diagnosis - Pulmonary embolism without acute cor pulmonale ms3 - Chest pain, unspecified ms3 Forms: - Medication Reconciliation Form ms3 - SBAR form ms3 Critical care time excluding procedures: 18:05 Critical care time: Bedside Care: 35 minutes, Consultation: 5 minutes, Family ms3 Intervention: 5 minutes. Total time: 45 minutes Signatures: Dispatcher [employer] EDMS Lubna Thorne RN Ramon Conde DO DO ms3 Leticia Hines RN RN vc1 Lin Patino, RN RN mb9 Jaspreet Hirsch MD MD sp4 Potter, Christina cp4 Lin Patino RN9 Corrections: (The following items were deleted from the chart) 06:14 06:14 Chest Single View+RAD.RAD.BRZ ordered. EDMS EDMS 06:24 06:24 HEPATIC FUNCTION+C.LAB.BRZ ordered. EDMS EDMS 06:36 06:36 Arterial Blood Gas+RC.LAB.BRZ ordered. EDMS EDMS 08:08 08:08 PROTIME (+INR)+COAG.LAB.BRZ ordered. EDMS EDMS 08:08 08:08 PTT, ACTIVATED+COAG.LAB.BRZ ordered. EDMS EDMS 10:18 08:08 ms3 mb9
[2024-07-07] MEDS ORDERED: HEPARIN 5000 UNIT/ML 1 ML VIAL ONE (08:15)
[2024-07-07 08:29] LABS: PT Prothrombin Time 12.7 SECONDS (9.4-12.5); PTT, Activated Partial Thromb 34.4 SECONDS (24.3-36.9); Protime INR 1.14
[2024-07-07 10:27] VITALS: TEMP 98.2
[2024-07-07 10:44] VITALS: O2SAT 98
[2024-07-07 10:45] VITALS: BP 146/75
--- NOTE | 2024-07-11 12:09 | EKG ---
Test Date: 2024-07-07 Test Time: 06:12:29 Bench Molder Apprentice: JIHAN MEASUREMENT RESULTS: Intervals: Rate: 103 [place]: QRSD: 82 QT: 362 QTc: 474 [place]: P: [place]: QRS: -64 T: 94 INTERPRETIVE STATEMENTS: Atrial flutter with variable AV block Left anterior fascicular block Nonspecific ST and T wave abnormality Abnormal ECG Compared to ECG 05/30/2023 14:25:00 Left anterior fascicular block now present Sinus rhythm no longer present Atrial abnormality no longer present Possible ischemia no longer present ST (T wave) deviation still present Electronically Signed On 07-11-24 12:07:11 ASSISTANT PRESSMAN by Lucius Fajardo
== END 2024-07-07 10:18 | disposition short-term general hospital (02) ==
LOC: ER 06:07
DX: I26.99 Other pulmonary embolism without acute cor pulmonale (principal); E11.9 Type 2 diabetes mellitus without complications; I10 Essential (primary) hypertension; Z86.73 Personal history of transient ischemic attack (TIA), and cerebral infarction without residual deficits; G20.A1 Parkinson's disease without dyskinesia, without mention of fluctuations; F02.80 Dementia in other diseases classified elsewhere, unspecified severity, without behavioral disturbance, psychotic disturbance, mood disturbance, and anxiety; Z79.82 Long term (current) use of aspirin; Z79.899 Other long term (current) drug therapy; Z79.4 Long term (current) use of insulin
CPT/HCPCS: 96365; 93005; 85025; 80048; 36415; 85610; 80076; 85730; 84443; 84484; 84439; 83690; 83880; 71260; 74177; 71045; 82805; 96375; 99285; 96366; 36600; Q9967; J1644 ×2